=== PATIENT | male | born 1950 | race Caucasian/White ===

== ENCOUNTER → 2016-04-06 | Outpatient (CLI) | payer BC ==
[~2016-04-06] MED LIST: ALPR0.5T7 PO; ASPI-498 OR; ATOR1TAB PO; CARI250T8 PO; CLOP75TA28 PO; DIPH25TA43 PO; FENO130C6 OR; FERR27TA2 PO; FURO40TA4 PO; GABA1POW27 XX; HYDR-3678 OR; IOHEXOL 350 MG/ML 100ML IJ ONE; LIS5T PO; METO-169 PO; METO5TAB56 PO; MULT-578 OR; OMEG100078 PO; POTA10CA29 PO
[2016-04-06 09:45] VITALS: BP 120/63
[2016-04-06 10:30] VITALS: BP 133/76
== END | disposition home or self-care (01) ==
LOC: Rad HDHVI 09:09
PROVIDERS: ATTEND Internal Medicine Cardiovascular Disease
DX: E11.9 Type 2 diabetes mellitus without complications (principal); M79.604 Pain in right leg
CPT/HCPCS: 75635; G0463; Q9967; 96374

== ENCOUNTER → 2016-12-31 | Outpatient (CLI) | payer MEDICARE ==
[~2016-12-31] MED LIST changes: +CARI250T PO; -CARI250T8 PO; -IOHEXOL 350 MG/ML 100ML IJ ONE; +VANCOMYCIN 1GM/250ML 250 ML IV ONE; +cefTRIAXone 1GM/50ML D5W 50 ML IV ONE; +cefTRIAXone 1GM/50ML D5W 50 ML IV SCH
[2016-12-31 14:00] VITALS: BP 110/48
== END | disposition home or self-care (01) ==
LOC: CHF HDHVI 11:41
PROVIDERS: ATTEND Internal Medicine Cardiovascular Disease
DX: R89.9 Unspecified abnormal finding in specimens from other organs, systems and tissues (principal)
CPT/HCPCS: 87077; 87186; 87205; 96365; 96367; G0463; J0696; J3370

== ENCOUNTER → 2017-01-05 | Outpatient (CLI) | payer MEDICARE ==
[~2017-01-05] MED LIST changes: +ADENOSINE 110 MG in GIVE UN-DILUTED 0 ML IV ONE; +ADENOSINE 90 MG/30 ML INJ IV ONE; -VANCOMYCIN 1GM/250ML 250 ML IV ONE; -cefTRIAXone 1GM/50ML D5W 50 ML IV ONE; -cefTRIAXone 1GM/50ML D5W 50 ML IV SCH
== END | disposition home or self-care (01) ==
LOC: Rad HDHVI 13:59
PROVIDERS: ATTEND Internal Medicine Cardiovascular Disease
DX: I10 Essential (primary) hypertension (principal); E11.8 Type 2 diabetes mellitus with unspecified complications; J44.9 Chronic obstructive pulmonary disease, unspecified; E78.00 Pure hypercholesterolemia, unspecified; R63.8 Other symptoms and signs concerning food and fluid intake; I87.2 Venous insufficiency (chronic) (peripheral); L03.119 Cellulitis of unspecified part of limb; L97.909 Non-pressure chronic ulcer of unspecified part of unspecified lower leg with unspecified severity; Z95.1 Presence of aortocoronary bypass graft
CPT/HCPCS: 78452; 93005; 96374; 96375; A9500; J0153

== ENCOUNTER → 2017-01-11 | Outpatient (CLI) | payer MEDICARE ==
[~2017-01-11] MED LIST changes: -ADENOSINE 110 MG in GIVE UN-DILUTED 0 ML IV ONE; -ADENOSINE 90 MG/30 ML INJ IV ONE
== END | disposition home or self-care (01) ==
LOC: Rad HDHVI 13:49
PROVIDERS: ATTEND Internal Medicine Cardiovascular Disease
DX: I73.9 Peripheral vascular disease, unspecified (principal)
CPT/HCPCS: 93306

== ENCOUNTER → 2017-01-22 | Outpatient (CLI) | payer MEDICARE ==
[~2017-01-22] MED LIST changes: +ALPR0.254 PO; +AZEL137S7; +FAMO-12 PO; +INSLANTI SC; +LORA-622 PO; +METF-370 PO; +[UNRECOGNIZED DRUG - CODE] PO
[2017-01-22 09:30] VITALS: BP 121/50
[2017-01-22 12:20] LABS: Basophils # (auto) 0 uL; Basophils % (auto) 0.4 % (0.0-2.0); Eosinophils # (auto) 0.1 uL; Eosinophils % (auto) 2.2 % (0.0-7.0); Hematocrit 35.3 % (41.0-53.0); Hemoglobin 11.7 g/dL (13.5-17.5); Lymphocytes # (auto) 1.1 uL; Lymphocytes % (auto) 22.8 % (10.0-50.0); Mean Corpuscular Hemoglobin 31.4 pg (28.0-32.0); Mean Corpuscular Volume 94.9 fL (80.0-100.0); Mean Platelet Volume 8.1 fL (6.9-10.8); Monocytes # (auto) 0.5 uL; Monocytes % (auto) 10.3 % (0.0-12.0); Neutrophils # (auto) 3.2 uL; Neutrophils % (auto) 64.3 % (37.0-80.0); Nucleated Red Blood Cells % 0.2 %; Platelet Count (auto) 175 10^3/uL (140-450); Red Cell Distribution Width 14.5 % (11.8-14.3)
[2017-01-22 12:30] LABS: INR 1.04 (0.9-1.15); Partial Thromboplastin Time 45.1 sec (22.64-33.71); Prothrombin Time 11.3 sec (9.37-12.3)
[2017-01-22 12:31] LABS: BUN/Creatinine Ratio 28.3; Calcium 9.3 mg/dL (8.5-10.1); Potassium 4.4 mmol/L (3.5-5.1)
== END | disposition home or self-care (01) ==
LOC: CHF HDHVI 09:02
PROVIDERS: ATTEND Internal Medicine Cardiovascular Disease
DX: Z01.818 Encounter for other preprocedural examination (principal); I70.0 Atherosclerosis of aorta; D64.9 Anemia, unspecified; I10 Essential (primary) hypertension; R79.1 Abnormal coagulation profile
CPT/HCPCS: 36415; 71020; 80048; 85025; 85610; 85730; 93005; G0463

== ENCOUNTER → 2017-01-28 | Day surgery (SDC) | payer MEDICARE ==
[~2017-01-28] VITALS: Ht 177.8 cm; Wt 133.8 kg
[~2017-01-28] MED LIST changes: -ALPR0.5T7 PO; +ANGIOMAX 250 MG VIAL IV ONE; -DIPH25TA43 PO; -FENO130C6 OR; -FERR27TA2 PO; -GABA1POW27 XX; -HYDR-3678 OR; +IOHEXOL 350 MG/ML 100ML IJ ONE; +LIDOCAINE 2%HCL (LOCAL ANESTH.) INJ 20ML MDV ONE; +MIDAZOLAM HCL 1MG/1ML-2 ML VIAL ONE; -MULT-578 OR; +SODIUM CHL 0.9% 0 ML ONE; +[UNRECOGNIZED DRUG - CODE] PO; -[UNRECOGNIZED DRUG - CODE] PO; +fentaNYL CITRATE 100 MCG/2 ML VL ONE
== END | disposition home or self-care (01) ==
LOC: CATH 11:18
PROVIDERS: ATTEND Internal Medicine Cardiovascular Disease
DX: I25.10 Atherosclerotic heart disease of native coronary artery without angina pectoris (principal); Z95.1 Presence of aortocoronary bypass graft; E66.01 Morbid (severe) obesity due to excess calories; I10 Essential (primary) hypertension; E78.5 Hyperlipidemia, unspecified; F17.210 Nicotine dependence, cigarettes, uncomplicated; I50.9 Heart failure, unspecified; I63.9 Cerebral infarction, unspecified; Z83.3 Family history of diabetes mellitus
CPT/HCPCS: 93458; C1760; C1894; J1644; J2250; J3010; J7030; Q9967; 99152

== ENCOUNTER → 2017-04-05 | Outpatient (CLI) | payer MEDICARE ==
[~2017-04-05] MED LIST changes: -ANGIOMAX 250 MG VIAL IV ONE; -IOHEXOL 350 MG/ML 100ML IJ ONE; -LIDOCAINE 2%HCL (LOCAL ANESTH.) INJ 20ML MDV ONE; -MIDAZOLAM HCL 1MG/1ML-2 ML VIAL ONE; -SODIUM CHL 0.9% 0 ML ONE; +VORA1TAB PO; -[UNRECOGNIZED DRUG - CODE] PO; -fentaNYL CITRATE 100 MCG/2 ML VL ONE
[2017-04-05 09:10] VITALS: BP 145/57
[2017-04-05 09:35] VITALS: BP 138/56
== END | disposition home or self-care (01) ==
LOC: CHF HDHVI 09:19
PROVIDERS: ATTEND Internal Medicine Cardiovascular Disease
DX: E87.70 Fluid overload, unspecified (principal); I50.9 Heart failure, unspecified; R89.9 Unspecified abnormal finding in specimens from other organs, systems and tissues
CPT/HCPCS: 87205; G0463; 87077; 87186

== ENCOUNTER 2017-09-10 10:02 | Inpatient (IN) | payer MEDICARE ==
[~2017-09-10] VITALS: Ht 177.8 cm; Wt 121.3 kg
[2017-09-10] VITALS (26 sets, daily range): BP systolic 100–135; BP diastolic 32–82
[2017-09-10 11:17] LABS: Basophils # (auto) 0 uL; Eosinophils # (auto) 0 uL; Eosinophils % (auto) 0.4 % (0.0-7.0); Hematocrit 19.5 % (41.0-53.0); Lymphocytes # (auto) 1.2 uL; Neutrophils # (auto) 5.3 uL; Nucleated Red Blood Cells % 0.2 %; Platelet Count (auto) 174 10^3/uL (140-450)
[2017-09-10 11:20] LABS: Basophils % (auto) 0.2 % (0.0-2.0); Lymphocytes % (auto) 16.6 % (10.0-50.0); Mean Corpuscular Hemoglobin 33.3 pg (28.0-32.0); Mean Corpuscular Hgb Conc. 34.2 g/dL (32.0-36.0); Mean Corpuscular Volume 97.6 fL (80.0-100.0); Monocytes # (auto) 0.6 uL; Monocytes % (auto) 8.9 % (0.0-12.0); Neutrophils % (auto) 73.9 % (37.0-80.0); Red Cell Distribution Width 14.5 % (11.8-14.3); White Blood Cell 7.1 10^3/uL (4.4-10.8)
[2017-09-10 11:24] LABS: Hemoglobin 6.7 g/dL (13.5-17.5)
[2017-09-10] MEDS ORDERED: SODIUM CHLORIDE 0.9% 1,000 ML IV ONE ×2 (11:30→14:45)
[2017-09-10] MEDS ORDERED: PANTOPRAZOLE 40 MG/10 ML VIAL IV ONE ×3 (11:30→13:15)
[2017-09-10 11:39] LABS: INR 1.09 (0.9-1.15); Partial Thromboplastin Time 25.4 sec (23.78-33.04); Prothrombin Time 11.6 sec (9.27-12.13)
[2017-09-10 11:58] LABS: Albumin 3.5 g/dL (3.4-5.0); BUN/Creatinine Ratio 34.4; Bilirubin, Total 0.4 mg/dL (0.2-1.0); Calcium 8.2 mg/dL (8.5-10.1); Potassium 4.7 mmol/L (3.5-5.1); Total Protein 6.6 g/dL (6.4-8.2)
[2017-09-10 12:03] LABS: Magnesium 2.3 mg/dL (1.6-2.6)
[2017-09-10] MEDS ORDERED: LORazepam 0.5 MG TAB PO PRN (13:30)
[2017-09-10] MEDS ORDERED: DEXTROSE (50%) 50ML SYRG IV PRN (13:30)
[2017-09-10] MEDS ORDERED: HYDROcodone-ACET 5/325MG TAB PO PRN (13:30)
[2017-09-10] MEDS ORDERED: LACTULOSE 20Gm/30ML SOLN PO PRN (13:30)
[2017-09-10] MEDS ORDERED: ACETAMINOPHEN 500 MG TAB PO PRN (13:30)
[2017-09-10] MEDS ORDERED: PROMETHAZINE HCL 25 MG/ML 1ML IV PRN (13:30)
[2017-09-10] MEDS ORDERED: MORPHINE SULF INJ 2 MG/ML SYRINGE 1ML IV PRN ×2 (13:30)
[2017-09-10] MEDS ORDERED: NITROGLYCERIN 0.4 MG SL TAB SL PRN (13:30)
[2017-09-10] MEDS ORDERED: SODIUM CHLORIDE 0.9% 500 ML IV ONE (13:45)
[2017-09-10] MEDS: cefTRIAXone 1GM/10ml IVPUSH 10 ML IV SCH (14:11)
[2017-09-10] MEDS: CLINDAMYCIN 600MG IV 50 ML IV SCH ×2 (14:11→22:19)
[2017-09-10 17:22] LABS: Urine WBC None Seen /hpf (0 - 3)
[2017-09-10 17:52] LABS: Urine Bacteria NONE SEEN /hpf (None Seen); Urine Blood Negative /uL (Negative); Urine Hyaline Cast FEW /lpf (0 - 2); Urine Specific Gravity 1.017 (1.001-1.035)
[2017-09-10] MEDS: ACCU-CHEK COMFORT CURVE STRIP VI SCH (18:25)
[2017-09-10] MEDS: InsuLIN REG 1unit/0.01ml Soln (100units/ml) SC SCH (18:30)
[2017-09-10 21:31] LABS: Hematocrit 23.3 % (41.0-53.0); Hemoglobin 8.3 g/dL (13.5-17.5)
[2017-09-10] MEDS: PANTOPRAZOLE 40 MG/10 ML VIAL IV SCH (22:19)
[2017-09-11] VITALS (27 sets, daily range): BP systolic 87–136; BP diastolic 34–101
[2017-09-11] MEDS: CLINDAMYCIN 600MG IV 50 ML IV SCH ×3 (06:05→22:41)
[2017-09-11] MEDS: ACCU-CHEK COMFORT CURVE STRIP VI SCH ×4 (06:25→18:21)
[2017-09-11] MEDS: InsuLIN REG 1unit/0.01ml Soln (100units/ml) SC SCH ×4 (06:25→18:20)
[2017-09-11 06:52] LABS: Hemoglobin 9.7 g/dL (13.5-17.5)
[2017-09-11 07:12] LABS: Albumin 3.5 g/dL (3.4-5.0); BUN/Creatinine Ratio 30.1; Calcium 7.9 mg/dL (8.5-10.1); Potassium 4.4 mmol/L (3.5-5.1)
[2017-09-11 07:14] LABS: Cholesterol 119 mg/dL (< 200); HDL Cholesterol 22 mg/dL (40-59); LDL Cholesterol 57 mg/dL (< 100); Triglycerides 331 mg/dL (< 150)
[2017-09-11 07:15] LABS: Bilirubin, Total 0.8 mg/dL (0.2-1.0); Total Protein 6.8 g/dL (6.4-8.2)
[2017-09-11] MEDS: cefTRIAXone 1GM/10ml IVPUSH 10 ML IV SCH (10:09)
[2017-09-11] MEDS: PANTOPRAZOLE 40 MG/10 ML VIAL IV SCH ×2 (10:10→22:41)
[2017-09-11 15:52] LABS: Hematocrit 28.3 % (41.0-53.0); Hemoglobin 9.7 g/dL (13.5-17.5)
[2017-09-11] MEDS ORDERED: TIZA4CAP PO (20:21)
[2017-09-11] MEDS ORDERED: FENO160T8 PO (20:22)
[2017-09-11] MEDS ORDERED: ROSU40TA PO (20:23)
[2017-09-11] MEDS ORDERED: DIPH1TAB30 PO (20:31)
[2017-09-11] MEDS ORDERED: MULT-228 PO (20:31)
[2017-09-11] MEDS ORDERED: DULA1INJ SC (20:31)
[2017-09-11] MEDS ORDERED: DICL-176 PO (20:31)
[2017-09-11] MEDS ORDERED: INSLISPI SC (20:31)
[2017-09-12] VITALS (14 sets, daily range): BP systolic 87–152; BP diastolic 41–78
[2017-09-12] MEDS: ACCU-CHEK COMFORT CURVE STRIP VI SCH ×5 (06:00→21:33)
[2017-09-12] MEDS: CLINDAMYCIN 600MG IV 50 ML IV SCH (06:00)
[2017-09-12] MEDS ORDERED: DEXTROSE (50%) 50ML SYRG IV PRN ×2 (07:30→21:15)
[2017-09-12 08:49] LABS: Basophils # (auto) 0 uL; Basophils % (auto) 0.3 % (0.0-2.0); Eosinophils # (auto) 0.1 uL; Eosinophils % (auto) 1.9 % (0.0-7.0); Hematocrit 26.1 % (41.0-53.0); Hemoglobin 8.5 g/dL (13.5-17.5); Lymphocytes # (auto) 1.2 uL; Lymphocytes % (auto) 17.8 % (10.0-50.0); Mean Corpuscular Hemoglobin 31.1 pg (28.0-32.0); Mean Corpuscular Hgb Conc. 32.7 g/dL (32.0-36.0); Mean Corpuscular Volume 95.1 fL (80.0-100.0); Monocytes # (auto) 0.5 uL; Monocytes % (auto) 8.2 % (0.0-12.0); Neutrophils # (auto) 4.7 uL; Neutrophils % (auto) 71.8 % (37.0-80.0); Nucleated Red Blood Cells % 0.2 %; Platelet Count (auto) 151 10^3/uL (140-450); Red Blood Cells 2.74 10^6/uL (4.5-5.90); Red Cell Distribution Width 15.8 % (11.8-14.3); White Blood Cell 6.6 10^3/uL (4.4-10.8)
[2017-09-12] MEDS: PANTOPRAZOLE 40 MG/10 ML VIAL IV SCH ×2 (09:25→20:51)
[2017-09-12] MEDS ORDERED: INSULIN LANTUS (GLARGINE) 1 /0.01ml (100units/ml) SC SCH ×2 (09:45→10:00)
[2017-09-12] MEDS: InsuLIN REG 1unit/0.01ml Soln (100units/ml) SC SCH ×4 (11:30→21:32)
[2017-09-12 12:53] LABS: Albumin 3.5 g/dL (3.4-5.0); BUN/Creatinine Ratio 21.3; Bilirubin, Total 0.7 mg/dL (0.2-1.0); Calcium 8.4 mg/dL (8.5-10.1); Potassium 4.5 mmol/L (3.5-5.1); Total Protein 6.7 g/dL (6.4-8.2)
[2017-09-12] MEDS ORDERED: INSULIN LANTUS (GLARGINE) 1 /0.01ml (100units/ml) SC ONE (21:15)
[2017-09-12] MEDS ORDERED: InsuLIN REG 1unit/0.01ml Soln (100units/ml) SC SCH (22:00)
[2017-09-13] VITALS (19 sets, daily range): BP systolic 111–147; BP diastolic 39–65
[2017-09-13] MEDS: InsuLIN REG 1unit/0.01ml Soln (100units/ml) SC SCH ×5 (00:18→21:38)
[2017-09-13] MEDS: ACCU-CHEK COMFORT CURVE STRIP VI SCH ×4 (00:22→21:39)
[2017-09-13] MEDS: TEMAZEPAM 15 MG CAP PO PRN ×2 (00:23→23:30)
[2017-09-13 03:44] LABS: Basophils # (auto) 0 uL; Eosinophils # (auto) 0.1 uL; Eosinophils % (auto) 2.1 % (0.0-7.0); Hematocrit 24.3 % (41.0-53.0); Lymphocytes # (auto) 1.1 uL; Monocytes # (auto) 0.4 uL; Neutrophils # (auto) 4.4 uL; Nucleated Red Blood Cells % 0.2 %; Platelet Count (auto) 152 10^3/uL (140-450)
[2017-09-13 03:48] LABS: Basophils % (auto) 0.4 % (0.0-2.0); Hemoglobin 8.4 g/dL (13.5-17.5); Lymphocytes % (auto) 17.9 % (10.0-50.0); Mean Corpuscular Hemoglobin 32.2 pg (28.0-32.0); Mean Corpuscular Hgb Conc. 34.4 g/dL (32.0-36.0); Mean Corpuscular Volume 93.5 fL (80.0-100.0); Monocytes % (auto) 6.7 % (0.0-12.0); Neutrophils % (auto) 72.9 % (37.0-80.0); Red Cell Distribution Width 15.7 % (11.8-14.3)
[2017-09-13 04:01] LABS: Albumin 3.2 g/dL (3.4-5.0); BUN/Creatinine Ratio 16.1; Potassium 3.9 mmol/L (3.5-5.1)
[2017-09-13 04:04] LABS: Bilirubin, Total 0.7 mg/dL (0.2-1.0); Total Protein 6.5 g/dL (6.4-8.2)
[2017-09-13] MEDS ORDERED: DEXTROSE (50%) 50ML SYRG IV PRN (07:30)
[2017-09-13] MEDS: INSULIN LANTUS (GLARGINE) 1 /0.01ml (100units/ml) SC SCH (10:00)
[2017-09-13] MEDS ORDERED: INSULIN LANTUS (GLARGINE) 1 /0.01ml (100units/ml) SC SCH (10:00)
[2017-09-13] MEDS: SODIUM CHLORIDE 0.9% 1,000 ML IV SCH ×3 (10:15→23:35)
[2017-09-13] MEDS: PANTOPRAZOLE 40 MG/10 ML VIAL IV SCH ×2 (10:30→21:38)
[2017-09-13] MEDS: POTASSIUM CHL 20MEQ/100ML 100 ML IV SCH ×2 (11:15→19:15)
[2017-09-13] MEDS ORDERED: InsuLIN REG 1unit/0.01ml Soln (100units/ml) SC SCH (11:30)
[2017-09-13] MEDS ORDERED: LIDOCAINE 2%HCL (LOCAL ANESTH.) INJ 10ml MDV ONE (12:48)
[2017-09-13] MEDS ORDERED: IOHEXOL 350 MG/ML 100ML IJ ONE (12:48)
[2017-09-13] MEDS ORDERED: MIDAZOLAM HCL 1MG/1ML-2 ML VIAL ONE ×2 (13:05→13:30)
[2017-09-13] MEDS ORDERED: ANGIOMAX 250 MG VIAL IV ONE (13:05)
[2017-09-13] MEDS ORDERED: SODIUM CHL 0.9% 0 ML ONE (13:05)
[2017-09-13] MEDS ORDERED: fentaNYL CITRATE 100 MCG/2 ML VL ONE (13:05)
[2017-09-13] MEDS ORDERED: diphenhdrAMINE HCL 50 MG/1 ML VL ONE (13:30)
[2017-09-13] MEDS ORDERED: SODIUM CHLORIDE 0.9% 1,000 ML IV SCH (13:59)
[2017-09-13 18:42] LABS: Hematocrit 27.5 % (41.0-53.0); Hemoglobin 9.2 g/dL (13.5-17.5)
[2017-09-14] VITALS: BP 117/57
[2017-09-14 04:00] VITALS: BP 117/56
[2017-09-14] MEDS: SODIUM CHLORIDE 0.9% 1,000 ML IV SCH ×3 (05:52→22:30)
[2017-09-14] MEDS: InsuLIN REG 1unit/0.01ml Soln (100units/ml) SC SCH ×5 (06:39→22:36)
[2017-09-14] MEDS: ACCU-CHEK COMFORT CURVE STRIP VI SCH ×4 (06:39→22:21)
[2017-09-14 08:15] VITALS: BP 120/93
[2017-09-14] MEDS ORDERED: GOLYTELY 4L KIT PO ONE (09:45)
[2017-09-14 10:20] LABS: Basophils # (auto) 0 uL; Basophils % (auto) 0.3 % (0.0-2.0); Eosinophils # (auto) 0.1 uL; Eosinophils % (auto) 2.8 % (0.0-7.0); Hematocrit 28.8 % (41.0-53.0); Hemoglobin 9.6 g/dL (13.5-17.5); Lymphocytes # (auto) 0.7 uL; Lymphocytes % (auto) 15.3 % (10.0-50.0); Mean Corpuscular Hemoglobin 32.7 pg (28.0-32.0); Mean Corpuscular Hgb Conc. 33.3 g/dL (32.0-36.0); Mean Corpuscular Volume 98.1 fL (80.0-100.0); Monocytes # (auto) 0.4 uL; Monocytes % (auto) 7.5 % (0.0-12.0); Neutrophils # (auto) 3.5 uL; Neutrophils % (auto) 74.1 % (37.0-80.0); Nucleated Red Blood Cells % 0.4 %; Platelet Count (auto) 158 10^3/uL (140-450); Red Blood Cells 2.94 10^6/uL (4.5-5.90); Red Cell Distribution Width 16.8 % (11.8-14.3); White Blood Cell 4.8 10^3/uL (4.4-10.8)
[2017-09-14 10:37] LABS: Albumin 3.4 g/dL (3.4-5.0); BUN/Creatinine Ratio 8.1; Calcium 8.2 mg/dL (8.5-10.1); Total Protein 6.7 g/dL (6.4-8.2)
[2017-09-14] MEDS ORDERED: LIDOCAINE 1% HCL (LOCAL ANESTH.) INJ 20ML MDV ID ONE (11:00)
[2017-09-14] MEDS: INSULIN LANTUS (GLARGINE) 1 /0.01ml (100units/ml) SC SCH (11:03)
[2017-09-14 12:00] VITALS: BP 131/71
[2017-09-14] MEDS ORDERED: LIDOCAINE 1% (LOCAL ANESTH.) PF 5ml SDV ONE (13:36)
[2017-09-14] MEDS: PANTOPRAZOLE 40 MG/10 ML VIAL IV SCH ×2 (15:24→22:21)
[2017-09-14 16:45] VITALS: BP 157/69
[2017-09-14 21:00] VITALS: BP 125/43
[2017-09-15] VITALS: BP 111/42
[2017-09-15 06:30] VITALS: BP 116/56
[2017-09-15] MEDS: ACCU-CHEK COMFORT CURVE STRIP VI SCH ×4 (06:45→21:54)
[2017-09-15] MEDS: InsuLIN REG 1unit/0.01ml Soln (100units/ml) SC SCH ×4 (06:46→21:55)
[2017-09-15 08:00] VITALS: BP 117/48
[2017-09-15] MEDS: PANTOPRAZOLE 40 MG/10 ML VIAL IV SCH ×2 (09:40→21:55)
[2017-09-15] MEDS: INSULIN LANTUS (GLARGINE) 1 /0.01ml (100units/ml) SC SCH (09:41)
[2017-09-15] MEDS: SODIUM CHLORIDE 0.9% 1,000 ML IV SCH ×2 (11:00→23:30)
[2017-09-15] MEDS ORDERED: MIDAZOLAM HCL 1MG/1ML-2 ML VIAL ONE (11:46)
[2017-09-15] MEDS ORDERED: PROPOFOL 10 MG/ML 20 ML IV ONE (11:46)
[2017-09-15] MEDS ORDERED: fentaNYL CITRATE 5 ML ONE (11:46)
[2017-09-15] MEDS ORDERED: SUCCINYLCHOLINE CHLORIDE 20 MG/ML 10ML VIAL IV ONE (11:49)
[2017-09-15] MEDS ORDERED: LIDOCAINE 1% (LOCAL ANESTH.) PF 5ml SDV ONE (11:49)
[2017-09-15 12:00] VITALS: BP 114/51
[2017-09-15 16:00] VITALS: BP 112/48
[2017-09-15 22:00] VITALS: BP 110/47
[2017-09-16 05:25] VITALS: BP 106/52
[2017-09-16] MEDS: ACCU-CHEK COMFORT CURVE STRIP VI SCH ×2 (06:13→11:30)
[2017-09-16] MEDS: InsuLIN REG 1unit/0.01ml Soln (100units/ml) SC SCH ×2 (06:14→11:30)
[2017-09-16 06:42] LABS: Basophils # (auto) 0 uL; Basophils % (auto) 0.5 % (0.0-2.0); Eosinophils # (auto) 0.2 uL; Eosinophils % (auto) 3.8 % (0.0-7.0); Hematocrit 26.9 % (41.0-53.0); Hemoglobin 9.2 g/dL (13.5-17.5); Lymphocytes # (auto) 0.8 uL; Lymphocytes % (auto) 18.3 % (10.0-50.0); Mean Corpuscular Hemoglobin 32.6 pg (28.0-32.0); Mean Corpuscular Hgb Conc. 34.3 g/dL (32.0-36.0); Mean Corpuscular Volume 95.1 fL (80.0-100.0); Monocytes # (auto) 0.4 uL; Monocytes % (auto) 8.4 % (0.0-12.0); Neutrophils # (auto) 3.1 uL; Nucleated Red Blood Cells % 0.1 %; Platelet Count (auto) 152 10^3/uL (140-450); Red Blood Cells 2.83 10^6/uL (4.5-5.90); Red Cell Distribution Width 17.5 % (11.8-14.3); White Blood Cell 4.5 10^3/uL (4.4-10.8)
[2017-09-16 07:00] LABS: BUN/Creatinine Ratio 7.8; Potassium 3.7 mmol/L (3.5-5.1)
[2017-09-16 08:11] VITALS: BP 115/54
[2017-09-16] MEDS: INSULIN LANTUS (GLARGINE) 1 /0.01ml (100units/ml) SC SCH (10:00)
[2017-09-16] MEDS: PANTOPRAZOLE 40 MG/10 ML VIAL IV SCH (10:00)
[2017-09-16] MEDS: SODIUM CHLORIDE 0.9% 1,000 ML IV SCH (12:00)
[2017-09-16 13:17] VITALS: BP 121/80
[2017-09-16 14:43] VITALS: BP 121/80
[2017-09-16] MEDS ORDERED: EPOETIN ALFA 10,000 UNIT/1 ML VIAL SC ONE (15:45)
[2017-09-16] MEDS ORDERED: FERROUS SULFATE 325 MG TAB PO SCH (18:00)
== END 2017-09-16 15:20 | disposition home or self-care (01) | DRG 377 ==
LOC: ER 10:02 → TELE 10:03 → ICU WEST 15:15 → TELE-EAST 09-15 17:21
PROVIDERS: ADMIT Internal Medicine; ATTEND Family Medicine
PROC: 30233N1 Transfusion of Nonautologous Red Blood Cells into Peripheral Vein, Percutaneous Approach (ICD-10-PCS; principal; 2017-09-10)
PROC: 4A023N7 Measurement of Cardiac Sampling and Pressure, Left Heart, Percutaneous Approach (ICD-10-PCS; 2017-09-13)
PROC: B2111ZZ Fluoroscopy of Multiple Coronary Arteries using Low Osmolar Contrast (ICD-10-PCS; 2017-09-13)
PROC: B2181ZZ Fluoroscopy of Left Internal Mammary Bypass Graft using Low Osmolar Contrast (ICD-10-PCS; 2017-09-13)
PROC: B21F1ZZ Fluoroscopy of Other Bypass Graft using Low Osmolar Contrast (ICD-10-PCS; 2017-09-13)
PROC: B3121ZZ Fluoroscopy of Left Subclavian Artery using Low Osmolar Contrast (ICD-10-PCS; 2017-09-13)
PROC: 0DJD8ZZ Inspection of Lower Intestinal Tract, Via Natural or Artificial Opening Endoscopic (ICD-10-PCS; 2017-09-15)
DX: K92.2 Gastrointestinal hemorrhage, unspecified (principal); N17.0 Acute kidney failure with tubular necrosis; I21.4 Non-ST elevation (NSTEMI) myocardial infarction; I50.42 Chronic combined systolic (congestive) and diastolic (congestive) heart failure; D62 Acute posthemorrhagic anemia; I13.0 Hypertensive heart and chronic kidney disease with heart failure and stage 1 through stage 4 chronic kidney disease, or unspecified chronic kidney disease; E87.1 Hypo-osmolality and hyponatremia; I25.10 Atherosclerotic heart disease of native coronary artery without angina pectoris; E66.01 Morbid (severe) obesity due to excess calories; E11.621 Type 2 diabetes mellitus with foot ulcer; N18.3 Chronic kidney disease, stage 3 (moderate); E11.21 Type 2 diabetes mellitus with diabetic nephropathy; D50.0 Iron deficiency anemia secondary to blood loss (chronic); E11.22 Type 2 diabetes mellitus with diabetic chronic kidney disease; E11.51 Type 2 diabetes mellitus with diabetic peripheral angiopathy without gangrene; E11.65 Type 2 diabetes mellitus with hyperglycemia; E78.5 Hyperlipidemia, unspecified; I48.91 Unspecified atrial fibrillation; K64.8 Other hemorrhoids; L97.519 Non-pressure chronic ulcer of other part of right foot with unspecified severity; Z79.01 Long term (current) use of anticoagulants; Z82.3 Family history of stroke; Z95.1 Presence of aortocoronary bypass graft; Z95.5 Presence of coronary angioplasty implant and graft; Z82.49 Family history of ischemic heart disease and other diseases of the circulatory system; Z79.899 Other long term (current) drug therapy; Z68.38 Body mass index [BMI] 38.0-38.9, adult
CPT/HCPCS: 36415; 36430; 45378; 71045; 73630; 74176; 75710; 76775; 80048; 80053; 80061; 81001; 82150; 82378; 82550; 82570; 82962; 83036; 83690; 83735; 83880; 84132; 84156; 84300; 84443; 84484; 85014; 85018; 85025; 85045; 85379; 85610; 85652; 85730; 86141; 86850; 86900; 86901; 86920; 87081; 93005; 93459; 93926; 94761; 96361; 96365; 96375; 99152; A6257; C9113; J0330; J0696; J1815; J2001; J2250; J2704; J3480; J3490

== ENCOUNTER → 2018-01-11 | Outpatient (CLI) | payer MEDICARE ==
[~2018-01-11] MED LIST changes: -ATOR1TAB PO; -AZEL137S7; -CARI250T PO; +DIPH1TAB30 PO; +DULA1INJ SC; +FENO160T8 PO; +INSLISPI SC; -LORA-622 PO; -METO5TAB56 PO; +MULT-228 PO; +ROSU40TA PO; +TIZA4CAP PO
== END | disposition home or self-care (01) ==
LOC: Rad HDHVI 12:50
PROVIDERS: ATTEND Internal Medicine Cardiovascular Disease
DX: I70.291 Other atherosclerosis of native arteries of extremities, right leg (principal); M79.606 Pain in leg, unspecified
CPT/HCPCS: 93926

== ENCOUNTER → 2018-01-25 | Outpatient (CLI) | payer MEDICARE ==
[2018-01-25 11:02] VITALS: BP 115/38
[2018-01-25 12:10] VITALS: BP 120/52
== END | disposition home or self-care (01) ==
LOC: Rad HDHVI 11:01
PROVIDERS: ATTEND Internal Medicine Cardiovascular Disease
DX: L97.519 Non-pressure chronic ulcer of other part of right foot with unspecified severity (principal)
CPT/HCPCS: 73630; G0463

== ENCOUNTER → 2018-01-31 | Outpatient (CLI) | payer MEDICARE ==
[~2018-01-31] MED LIST changes: +AGG25C PO; +ALPR1TAB7 PO; +OMEG120015 PO
[2018-01-31 09:30] VITALS: BP 113/42
[2018-01-31 10:35] VITALS: BP 120/47
[2018-01-31 12:17] LABS: Basophils # (auto) 0 uL; Basophils % (auto) 0.4 % (0.0-2.0); Eosinophils # (auto) 0.1 uL; Eosinophils % (auto) 2.2 % (0.0-7.0); Hematocrit 36.9 % (41.0-53.0); Hemoglobin 12.1 g/dL (13.5-17.5); Lymphocytes # (auto) 0.9 uL; Lymphocytes % (auto) 20.3 % (10.0-50.0); Mean Corpuscular Hemoglobin 30.6 pg (28.0-32.0); Mean Corpuscular Hgb Conc. 32.8 g/dL (32.0-36.0); Mean Corpuscular Volume 93.5 fL (80.0-100.0); Monocytes # (auto) 0.5 uL; Monocytes % (auto) 10.7 % (0.0-12.0); Neutrophils # (auto) 2.9 uL; Neutrophils % (auto) 66.4 % (37.0-80.0); Nucleated Red Blood Cells % 0.1 %; Platelet Count (auto) 230 10^3/uL (140-450); Red Blood Cells 3.94 10^6/uL (4.5-5.90); Red Cell Distribution Width 14.4 % (11.8-14.3); White Blood Cell 4.4 10^3/uL (4.4-10.8)
[2018-01-31 12:25] LABS: Potassium 4.6 mmol/L (3.5-5.1)
[2018-01-31 12:27] LABS: BUN/Creatinine Ratio 21.1
[2018-01-31 12:38] LABS: INR 1.09 (0.9-1.15); Partial Thromboplastin Time 49.7 sec (23.78-33.04); Prothrombin Time 11.6 sec (9.27-12.13)
== END | disposition home or self-care (01) ==
LOC: Rad HDHVI 09:17
PROVIDERS: ATTEND Internal Medicine Cardiovascular Disease
DX: Z01.818 Encounter for other preprocedural examination (principal); I70.0 Atherosclerosis of aorta; I11.0 Hypertensive heart disease with heart failure; I50.9 Heart failure, unspecified; R79.1 Abnormal coagulation profile; D64.9 Anemia, unspecified
CPT/HCPCS: 36415; 71046; 80048; 85025; 85610; 85730; 93005; G0463

== ENCOUNTER 2018-03-17 10:13 | Inpatient (IN) | payer MEDICARE | END 2018-03-25 20:00 | LOC: ICU CENTRL 03-20 10:01 → TELE-CENTR 03-23 14:09 → ER 10:13 → DOU IN ICU 03-20 19:31 → TELE 13:42 → TELE-CENTR 19:55 | PROC: 30233N1 Transfusion of Nonautologous Red Blood Cells into Peripheral Vein, Percutaneous Approach (ICD-10-PCS; principal; 2018-03-21 11:46) | PROC: 0WJP8ZZ Inspection of Gastrointestinal Tract, Via Natural or Artificial Opening Endoscopic Approach (ICD-10-PCS; 2018-03-21 11:46) | DX: K92.2 Gastrointestinal hemorrhage, unspecified (principal); J18.9 Pneumonia, unspecified organism; N17.0 Acute kidney failure with tubular necrosis; E44.0 Moderate protein-calorie malnutrition; M86.9 Osteomyelitis, unspecified; I13.0 Hypertensive heart and chronic kidney disease with heart failure and stage 1 through stage 4 chronic kidney disease, or unspecified chronic kidney disease; I47.2 Ventricular tachycardia; D64.9 Anemia, unspecified; R53.1 Weakness; I73.9 Peripheral vascular disease, unspecified; I25.10 Atherosclerotic heart disease of native coronary artery without angina pectoris; E11.69 Type 2 diabetes mellitus with other specified complication; I50.9 Heart failure, unspecified; I11.0 Hypertensive heart disease with heart failure; E11.22 Type 2 diabetes mellitus with diabetic chronic kidney disease; N18.9 Chronic kidney disease, unspecified; E11.51 Type 2 diabetes mellitus with diabetic peripheral angiopathy without gangrene; E66.9 Obesity, unspecified; I25.5 Ischemic cardiomyopathy; K29.70 Gastritis, unspecified, without bleeding; B96.89 Other specified bacterial agents as the cause of diseases classified elsewhere; E11.42 Type 2 diabetes mellitus with diabetic polyneuropathy; E11.621 Type 2 diabetes mellitus with foot ulcer; L97.519 Non-pressure chronic ulcer of other part of right foot with unspecified severity; Z95.1 Presence of aortocoronary bypass graft ==

== ENCOUNTER → 2018-04-11 | Outpatient (CLI) | payer MEDICARE ==
[~2018-04-11] MED LIST changes: +ACET-1156 PO; -ALPR0.254 PO; +AMINLIQ64 PO; +AMIO200T33 PO; +APIX5TAB4 PO; -ASPI-498 OR; +BIS10RS PR; +FERR-7 PO; +FLUC200T35 PO; +HYDR-4683 PO; +LINE1TAB6 PO; +MAGN400S25 PO; +MAGN84TA4 PO; +MAGNESIUM SULFATE 1GM/100ML 100 ML IV SCH; +MAGNESIUM SULFATE 1GM/100ML 200 ML IV ONE; +METH-532 PO; +MULTTAB61 PO; +MVI in SODIUM CHLORIDE 0.9% 1,010 ML ONE; +MVI in SODIUM CHLORIDE 0.9% 500 ML IVB ONE; -OMEG100078 PO; +ONDA4TAB5 PO; +PANT1INJ3 PO; +SACC1CAP3 PO; -VORA1TAB PO
--- NOTE | 2018-04-11 10:00 | NUR ---
FOUND PATIENT FALLING BACK IN WHEELCHAIR WITH LEGS OUT BOTTOM, PALE, DIAPHORETIC WITH EYES OPEN, NOT TRACKING, INITIALLY NON-VERBAL. GRUNTING AND INEFFECTIVE BREATHS NOTED INITIALLY. 2 WOMEN IN ATTENDANCE SCREAMING FOR HELP. MULTIPLE CAREGIVERS RESPONDED WITH PT LIFTED BACK TO SECURE POSITION IN CHAIR BY 4 PERSONS. PT TRYING TO SPEAK, VERY SOFTLY. FAMILY CONTINUES TO SCREAM FOR 911. PT STATES TO FRANCISCO IN SOFT VOICE "I DONT WANT TO GO TO HOSPITAL" PT RECOGNIZES FRANCISCO RN AND PT ALSO KNOWS HIS STATED NAME. APPEARS TO BE COMING OUT OF NON RESPONSIVE EPISODE AND TALKING MORE TO FRANCISCO. PALENESS APPEARS TO BE LESSENING AND DIAPHORESIS APPEARS LESSENED.
--- NOTE | 2018-04-11 10:10 | NUR ---
[facility]EMS JUST ARRIVED AT SCENE, AN APPARENT CALL TO 911 BY FAMILY MEMBER AND STAFF WITHOUT KNOWLEDGE OF THIS RN. PT. IS AOX3, SLIGHTLY DIAPHORETIC. PT. WAS SCHEDULED FOR POST HOSP. APPT. IN WAITING ROOM. SEE ABOVE NOTE BY TIFFANIE PRATER. PT. DOES NOT REMEMBER EVENTS IN WAITING ROOM,AND PT. HAD HIS EYES OPEN WHEN I ARRIVED TO WAITING ROOM. BRIEF REPORT GIVEN TO EMS BY THIS RN WITH SIGNIFICANT AND EXTENSIVE HX. GIVEN TO MEDIC ON FAMILY DYNAMICS. PT. WISHES TO REMAIN IN WC. O2 WAS APPLIED VIA NC UPON ARRIVAL AT 4L. B/P 94/53, HR82, RR18 AND NON LABORED. RBS DONE BY EMS IS 236. DR. GONZALEZ CALLED TO BEDSIDE.
--- NOTE | 2018-04-11 10:15 | NUR ---
DR. GONZALEZ AT CHAIRSIDE. PT. REMAINS IN WITH NO C/O. PT. HAS EXISTING PICC RUE, STAT LABS DRAWN AND SENT UPON ARRIVAL. NEW ORDERS RECEIVED AND CARRIED OUT.PT. TO SIGN AMA FOR TRANSPORT TO [facility] LEAVING SHORTLY. FAMILY AT CHAIRSIDE.
--- NOTE | 2018-04-11 10:30 | NUR ---
PT. MOVED TO CHAIR FOR EKG AND COMFORT. EKG SHOWS VENT PACED RHYTHM WITH 100% CAPTURE. RESULTS TO DR. GONZALEZ.
--- NOTE | 2018-04-11 10:40 | NUR ---
MEDS: .9NS WITH MVI STARTED AT 125CC/HR PER ORDER. PT. HAS BILAT.DRESSING TO BOTH FEET THAT ARE CHANGED DAILY AT [facility]. PT. IS REQUESTING PODIATRY CONSULT.
[2018-04-11 11:03] LABS: Basophils # (auto) 0 uL; Basophils % (auto) 0.5 % (0.0-2.0); Eosinophils # (auto) 0.1 uL; Eosinophils % (auto) 1.5 % (0.0-7.0); Hematocrit 28.5 % (41.0-53.0); Hemoglobin 9.5 g/dL (13.5-17.5); Lymphocytes # (auto) 1.4 uL; Lymphocytes % (auto) 21.1 % (10.0-50.0); Mean Corpuscular Hgb Conc. 33.3 g/dL (32.0-36.0); Mean Corpuscular Volume 92.9 fL (80.0-100.0); Monocytes # (auto) 0.5 uL; Monocytes % (auto) 8.1 % (0.0-12.0); Neutrophils # (auto) 4.7 uL; Neutrophils % (auto) 68.8 % (37.0-80.0); Nucleated Red Blood Cells % 0.7 %; Platelet Count (auto) 228 10^3/uL (140-450); Red Blood Cells 3.07 10^6/uL (4.5-5.90); White Blood Cell 6.8 10^3/uL (4.4-10.8)
[2018-04-11 11:15] LABS: Albumin 2.6 g/dL (3.4-5.0); Calcium 7.9 mg/dL (8.5-10.1); Magnesium 1.7 mg/dL (1.6-2.6); Potassium 4.2 mmol/L (3.5-5.1)
--- NOTE | 2018-04-11 11:30 | NUR ---
PT'S IS ASKING HOW LONG PT. WILL HAVE TO BE HERE IN CLINIC. PENDING STAT LABS. B/P 90/44, 72, 18 O2 REMOVED BY PT, WITH RA SATS 96%. PLAN OF CARE DISCUSSED WITH PT. AND WITH ASSURANCE THAT PT. WILL NOT BE DISCHARGED UNTIL LAB RESULTS PER DR. GONZALEZ. PT. STATES HE HAS NO PROBLEMS.
[2018-04-11 11:33] LABS: BUN/Creatinine Ratio 9.7
[2018-04-11 11:34] LABS: Bilirubin, Total 0.8 mg/dL (0.2-1.0); Total Protein 6.7 g/dL (6.4-8.2)
--- NOTE | 2018-04-11 12:47 | NUR ---
MEDS: MAG SULFATE 1 GM IV STARTED PER MD ORDER AFTER LABS REVIEWED WITH DR. GONZALEZ. PT. SITTING UP EATING LUNCH THAT WAS BROUGHT IN BY , AND ATE 100% THAT WAS OFFERED TO HIM. 104/49, 74, 18. PACED RHYTHM.
--- NOTE | 2018-04-11 14:00 | NUR ---
MEDS: SECOND GM OF MGSO4 IV STARTED VIA PICC. EXISTING GASTON FROM ECF WITH YELLOW URINE AND APPROX. 400CC IN BAG
--- NOTE | 2018-04-11 14:56 | NUR ---
MEDS COMPLETE PICC LINES FLUSHED PER PROTOCOL WITH 150CC OF HEPARIN EACH.SITE BENIGN. PT. TOLERATED MEDS WELL. GIVEN COPY OF ALL LABS. NEW ORDERS AND PROGRESS NOTES FILLED OUT BY DR. GONZALEZ AND GIVEN TO FAMILY TO TAKE TO ECF. PT. TO MAKE APPT FOR LOWER EXT. DOPPLER PER MD ORDER OUT PATIENT. PT. WAS GIVEN ONE FOR 11:50 TOMORROW BUT DECLINED AND WILL RESCHEDULE.
[2018-04-11 15:15] VITALS: BP 94/48
--- NOTE | 2018-04-11 15:15 | NUR ---
Discharge Instructions See e-MAR for any mediations given with this visit. Patient education given on disease process. Patient verbalized understanding. Previous labs reviewed. Patient discharged in stable condition with after care instructions and follow up appointment.PT DISCHARGED WITH ECF TEAM VIA WC.
== END | disposition home or self-care (01) ==
LOC: EDBD → CHF HDHVI 10:17
PROVIDERS: ATTEND Internal Medicine Cardiovascular Disease
DX: I25.119 Atherosclerotic heart disease of native coronary artery with unspecified angina pectoris (principal); I13.0 Hypertensive heart and chronic kidney disease with heart failure and stage 1 through stage 4 chronic kidney disease, or unspecified chronic kidney disease; E11.22 Type 2 diabetes mellitus with diabetic chronic kidney disease; N18.3 Chronic kidney disease, stage 3 (moderate); I50.23 Acute on chronic systolic (congestive) heart failure; I50.32 Chronic diastolic (congestive) heart failure; D64.9 Anemia, unspecified; E83.42 Hypomagnesemia; R55 Syncope and collapse; E11.51 Type 2 diabetes mellitus with diabetic peripheral angiopathy without gangrene; M86.9 Osteomyelitis, unspecified; I49.5 Sick sinus syndrome; I25.2 Old myocardial infarction; I48.91 Unspecified atrial fibrillation; I70.0 Atherosclerosis of aorta; I42.9 Cardiomyopathy, unspecified; J44.9 Chronic obstructive pulmonary disease, unspecified; E11.42 Type 2 diabetes mellitus with diabetic polyneuropathy; E66.01 Morbid (severe) obesity due to excess calories; E11.21 Type 2 diabetes mellitus with diabetic nephropathy; E78.5 Hyperlipidemia, unspecified; Z79.82 Long term (current) use of aspirin; Z95.1 Presence of aortocoronary bypass graft; Z79.84 Long term (current) use of oral hypoglycemic drugs; Z87.891 Personal history of nicotine dependence; Z95.810 Presence of automatic (implantable) cardiac defibrillator; Z86.718 Personal history of other venous thrombosis and embolism; Z79.01 Long term (current) use of anticoagulants; Z79.899 Other long term (current) drug therapy
CPT/HCPCS: 36415; 80053; 83735; 83880; 84484; 85025; 93005; 96365; 96366; 96368; G0463; J1642; J3411; J3475

== ENCOUNTER → 2018-04-19 | Outpatient (CLI) | payer MEDICARE ==
[~2018-04-19] MED LIST changes: -MAGNESIUM SULFATE 1GM/100ML 100 ML IV SCH; -MAGNESIUM SULFATE 1GM/100ML 200 ML IV ONE; -MVI in SODIUM CHLORIDE 0.9% 1,010 ML ONE; -MVI in SODIUM CHLORIDE 0.9% 500 ML IVB ONE
[2018-04-19 08:15] VITALS: BP 96/47
[2018-04-19 09:17] VITALS: BP 95/45
--- NOTE | 2018-04-19 09:17 | NUR ---
IN FOR ULTRASOUND OF BILATERAL LEGS. PT FROM ULTRASOUND TO CHF WITH PROFUSE VOMITING AND "NOT FEELING WELL". 2 FAMILY MEMBERS IN ATTENDANCE. PT IS WHEELCHAIR BOUND WITH BILATERAL FEET IN DRESSINGS. UNABLE TO STAND. EMESISED 400 ML OF MORNING BREAKFAST. DENIED FURTHER NAUSEA AFTER EMESIS. PT STATES "THERE IS NO WAY I CAN GET ON THAT TABLE IN ULTRASOUND". 3 PERSON LIFT ONTO RECLINER CHAIR IN CHF CLINIC. ULTRASOUND DONE AT CHAIRSIDE IN CHF CLINIC. PT TOLERATED WELL. REPEAT VS WNL. 3 PERSON LIFT BACK INTO CHAIR AND DISCHARGED TO CARE OF FAMILY MEMBERS TO RETURN TO FACILITY FOR ONGOING CARE. IN NO DISTRESS OR DISCOMFORT AT TIME OF DISCHARGE. Discharge Instructions Patient discharged in stable condition.
== END | disposition home or self-care (01) ==
LOC: Rad HDHVI 08:10
PROVIDERS: ATTEND Internal Medicine Cardiovascular Disease
DX: I73.9 Peripheral vascular disease, unspecified (principal); R55 Syncope and collapse; I95.9 Hypotension, unspecified
CPT/HCPCS: G0463

== ENCOUNTER → 2018-05-10 | Outpatient (CLI) | payer MEDICARE | END | disposition home or self-care (01) | LOC: EDBD → XY 10:38 | PROVIDERS: ATTEND Podiatrist Foot & Ankle Surgery | DX: I70.203 Unspecified atherosclerosis of native arteries of extremities, bilateral legs (principal); I77.1 Stricture of artery | CPT/HCPCS: 93925 ==

== ENCOUNTER → 2018-09-27 | Outpatient (CLI) | payer MEDICARE ==
[~2018-09-27] MED LIST changes: -HYDR-4683 PO; +HYDR-4833 PO; +ONDA-144 PO; -ONDA4TAB5 PO; +TEMA30CA5 PO
== END | disposition home or self-care (01) ==
LOC: Rad HDHVI 10:03
PROVIDERS: ATTEND Internal Medicine Cardiovascular Disease
DX: I08.0 Rheumatic disorders of both mitral and aortic valves (principal); R55 Syncope and collapse; I11.0 Hypertensive heart disease with heart failure; I50.9 Heart failure, unspecified; Z98.61 Coronary angioplasty status
CPT/HCPCS: 93306

== ENCOUNTER → 2019-05-31 | Outpatient (CLI) | payer MEDICARE ==
[~2019-05-31] MED LIST changes: -ACET-1156 PO; -AGG25C PO; -AMINLIQ64 PO; -BIS10RS PR; -DULA1INJ SC; -FLUC200T35 PO; -FURO40TA4 PO; -LINE1TAB6 PO; -MAGN400S25 PO; -MAGN84TA4 PO; -METO-169 PO; -MULTTAB61 PO; -ONDA-144 PO; -POTA10CA29 PO; -ROSU40TA PO; -SACC1CAP3 PO
[2019-05-31 11:24] LABS: BUN/Creatinine Ratio 22.6; Calcium 8.5 mg/dL (8.5-10.1); Magnesium 2.2 mg/dL (1.6-2.6); Potassium 4.6 mmol/L (3.5-5.1)
== END | disposition home or self-care (01) ==
LOC: LAB 10:02
PROVIDERS: ATTEND Internal Medicine Cardiovascular Disease
DX: R00.2 Palpitations (principal); R42 Dizziness and giddiness; K21.9 Gastro-esophageal reflux disease without esophagitis; I10 Essential (primary) hypertension; E11.9 Type 2 diabetes mellitus without complications; E78.5 Hyperlipidemia, unspecified; I11.0 Hypertensive heart disease with heart failure; I50.9 Heart failure, unspecified; E11.51 Type 2 diabetes mellitus with diabetic peripheral angiopathy without gangrene
CPT/HCPCS: 36415; 80048; 83735

== ENCOUNTER → 2019-06-07 | Outpatient (CLI) | payer MEDICARE ==
[~2019-06-07] VITALS: Ht 177.8 cm; Wt 113.4 kg
[~2019-06-07] MED LIST changes: +ADENOSINE 90 MG/30 ML INJ IV ONE; +ADENOSINE 95 MG in GIVE UN-DILUTED 0 ML IV ONE
== END | disposition home or self-care (01) ==
LOC: Rad HDHVI 13:43
PROVIDERS: ATTEND Internal Medicine Cardiovascular Disease
DX: I25.2 Old myocardial infarction (principal); I10 Essential (primary) hypertension; R07.89 Other chest pain; E78.00 Pure hypercholesterolemia, unspecified; E11.9 Type 2 diabetes mellitus without complications; Z95.0 Presence of cardiac pacemaker; Z95.1 Presence of aortocoronary bypass graft; Z82.49 Family history of ischemic heart disease and other diseases of the circulatory system
CPT/HCPCS: 78452; 93005; 96374; 96375; A9500; J0153

== ENCOUNTER → 2019-06-13 | Outpatient (CLI) | payer MEDICARE ==
[~2019-06-13] MED LIST changes: -ADENOSINE 90 MG/30 ML INJ IV ONE; -ADENOSINE 95 MG in GIVE UN-DILUTED 0 ML IV ONE
== END | disposition home or self-care (01) ==
LOC: Rad HDHVI 13:54
PROVIDERS: ATTEND Internal Medicine Cardiovascular Disease
DX: I08.1 Rheumatic disorders of both mitral and tricuspid valves (principal); I11.0 Hypertensive heart disease with heart failure; I50.23 Acute on chronic systolic (congestive) heart failure; I25.5 Ischemic cardiomyopathy
CPT/HCPCS: 93306

== ENCOUNTER 2019-12-21 18:06 | Inpatient (IN) | payer MEDICARE ==
[~2019-12-21] VITALS: Ht 177.8 cm; Wt 109.5 kg
[2019-12-21 20:49] LABS: Basophils # (auto) 0 10 ^3/uL (0-0.2); Basophils % (auto) 0.5 % (0.0-2.0); Eosinophils # (auto) 0.1 10 ^3/uL (0-0.8); Eosinophils % (auto) 1.6 % (0.0-7.0); Hematocrit 33.4 % (41.0-53.0); Hemoglobin 11.2 g/dL (13.5-17.5); Lymphocytes # (auto) 0.5 10 ^3/uL (0.4-5.4); Lymphocytes % (auto) 8.7 % (10.0-50.0); Mean Corpuscular Hemoglobin 31.2 pg (28.0-32.0); Mean Corpuscular Hgb Conc. 33.6 g/dL (32.0-36.0); Monocytes # (auto) 0.4 10 ^3/uL (0-1.3); Monocytes % (auto) 7.3 % (0.0-12.0); Neutrophils # (auto) 4.4 10 ^3/uL (1.6-8.6); Neutrophils % (auto) 81.9 % (37.0-80.0); Platelet Count (auto) 209 10^3/uL (140-450); Red Blood Cells 3.59 10^6/uL (4.5-5.90); Red Cell Distribution Width 15.6 % (11.8-14.3); White Blood Cell 5.4 10^3/uL (4.4-10.8)
[2019-12-21 21:01] LABS: Albumin 3.6 g/dL (3.4-5.0); Potassium 5.4 mmol/L (3.5-5.1)
[2019-12-21 21:03] LABS: BUN/Creatinine Ratio 15.8
[2019-12-21 21:09] LABS: Bilirubin, Total 0.8 mg/dL (0.2-1.0); Total Protein 7.9 g/dL (6.4-8.2)
[2019-12-21] MEDS ORDERED: cefTRIAXone 1GM/50ML D5W 50 ML IV ONE (22:15)
[2019-12-21] MEDS ORDERED: CLINDAMYCIN 900MG IV 50 ML IV ONE (23:00)
[2019-12-21 23:55] LABS: Urine Bacteria FEW /hpf (None Seen); Urine Blood Negative /uL (Negative); Urine Specific Gravity 1.007 (1.001-1.035); Urine WBC 1 /hpf (0 - 3)
[2019-12-22] MEDS ORDERED: NITROGLYCERIN 0.4 MG SL TAB SL PRN (03:15)
[2019-12-22] MEDS ORDERED: MORPHINE SULFATE 4 MG/ML SYR/VIAL IV ONE (03:15)
[2019-12-22] MEDS ORDERED: DOCUSATE SOD 100 MG CAP PO PRN (03:15)
[2019-12-22] MEDS ORDERED: ACETAMINOPHEN 325 MG TAB PO PRN (03:15)
[2019-12-22] MEDS ORDERED: ONDANSETRON HCL 4 MG/2 ML VIAL IV PRN (03:15)
[2019-12-22] MEDS ORDERED: MORPHINE SULF INJ 2 MG/ML SYRINGE 1ML IV PRN (03:15)
[2019-12-22] MEDS ORDERED: ONDANSETRON HCL 4 MG/2 ML VIAL IV ONE (03:15)
[2019-12-22] MEDS ORDERED: HYDROcodone-ACET 10/325MG TAB PO ONE (03:30)
[2019-12-22] MEDS ORDERED: DEXTROSE (50%) 50ML SYRG IV PRN (03:30)
[2019-12-22 04:00] LABS: Basophils # (auto) 0 10 ^3/uL (0-0.2); Basophils % (auto) 0.6 % (0.0-2.0); Eosinophils # (auto) 0.1 10 ^3/uL (0-0.8); Eosinophils % (auto) 1.4 % (0.0-7.0); Hematocrit 32.3 % (41.0-53.0); Hemoglobin 10.9 g/dL (13.5-17.5); Lymphocytes # (auto) 0.6 10 ^3/uL (0.4-5.4); Lymphocytes % (auto) 9.7 % (10.0-50.0); Mean Corpuscular Hemoglobin 31.4 pg (28.0-32.0); Mean Corpuscular Hgb Conc. 33.6 g/dL (32.0-36.0); Mean Corpuscular Volume 93.3 fL (80.0-100.0); Monocytes # (auto) 0.5 10 ^3/uL (0-1.3); Monocytes % (auto) 7.9 % (0.0-12.0); Neutrophils # (auto) 5.4 10 ^3/uL (1.6-8.6); Neutrophils % (auto) 80.4 % (37.0-80.0); Platelet Count (auto) 213 10^3/uL (140-450); Red Blood Cells 3.47 10^6/uL (4.5-5.90); Red Cell Distribution Width 15.2 % (11.8-14.3); White Blood Cell 6.7 10^3/uL (4.4-10.8)
[2019-12-22 04:14] LABS: Albumin 3.4 g/dL (3.4-5.0)
[2019-12-22 04:19] LABS: BUN/Creatinine Ratio 16.9; Bilirubin, Total 0.7 mg/dL (0.2-1.0); Total Protein 7.6 g/dL (6.4-8.2)
[2019-12-22 04:53] LABS: Cholesterol 198 mg/dL (< 200); HDL Cholesterol 23 mg/dL (40-59); LDL Cholesterol 152 mg/dL (< 100); Triglycerides 225 mg/dL (< 150)
[2019-12-22] MEDS ORDERED: HEPARIN SODIUM (PORCINE) 5000 UNITS/ML 1ML VIAL SC SCH (06:00)
[2019-12-22] MEDS: CLINDAMYCIN 300MG IV 50 ML IV SCH ×3 (06:27→21:50)
[2019-12-22] MEDS: SODIUM CHLOR 0.9% PF (SALINE LOCK) 10ML VIAL/SYR IV SCH ×3 (06:28→21:50)
[2019-12-22] MEDS: ACCU-CHEK COMFORT CURVE STRIP VI SCH ×4 (07:11→21:48)
[2019-12-22] MEDS: InsuLIN REG 1unit/0.01ml Soln (100units/ml) SC SCH ×4 (08:54→22:08)
[2019-12-22] MEDS: HYDROcodone-ACET 5/325MG TAB PO PRN ×2 (08:55→15:35)
--- NOTE | 2019-12-22 10:11 | NUR ---
Telemetry admit from [facility] admitted to Telemetry unit after SBAR received. Patient oriented to Og suresh RN, unit, room, bed, and unit policies regarding patient care and visiting hours. Patient now on continuous telemetry monitoring, tele box # 92 and telemetry reading on arrival to unit is v paced 81. Patient placed on bedside oxygen, weighed by bedscale and encouraged to call if they need something. All questions and concerns addressed, patient verbalized understanding. Note: Patient noted to be aaox4, pleasant and coopoerative and voiced no c/o pain at this time. Patient orientated to staff, unit and routine and patient verbalized understanding. admission assessment done and charted. Plan of care, medications and treatments discussed with patient and patient verbalized understanding. will continue to monitor patient.
[2019-12-22] MEDS: cefTRIAXone 1GM/50ML D5W 50 ML IV SCH (11:14)
[2019-12-22 13:00] VITALS: BP 122/72
[2019-12-22] MEDS ORDERED: AMIODARONE HCL 200 MG TAB PO ONE (13:00)
[2019-12-22] MEDS ORDERED: OPTISON 3ml Vial for INJ IV ONE (15:16)
--- NOTE | 2019-12-22 15:47 | NUR ---
WOUND CARE NOTE: Wound care in to see patient per wound care request regarding "Left Lower Extremity wound". Patient is 69 years old male with admitting diagnosis of Lt. Lower Extremity Cellulitis. Patient is resting in bed in Rm. 285A. Patient is awake, alert and oriented. He's medicated pain for pain by his bedside nurse prior skin/wound assessment. Patient has history R BKA with well healed stump. He's able to assist in turning and repositioning by grabbing onto bed rails. His Paulo score is 17. Skin/wound assessment done with the assistance of patient' s nurse, TIFFANIE Foley. Patient's L lateral lower leg/calf noted with 4.5x1.5x0.3cm open full thickness ulcer. Wound is red with yellow slough, with bright red periwound. Mild LLE edema noted. Scant serous drainage noted, no odor noted. Patient reported that he has had the Lt lateral calf wound for about a year. Patient is Diabetic and has history of peripheral arterial disease. Bedside nurse took specimen for wound culture and sent to lab for processing. Photograph of patient's L lateral calf wound are taken for reference. Patient seen by Pitch Worker Dr. Moura and ordered BID WTD dressing change with 1/4 strength Dakin's solution. TIFFANIE Foley at bedside for patient's dressing change awaiting pharmacy delivery of Dakin's solution. Superficial linear scratches also noted on patient's proximal Lt lower leg, which he reported from scratching. Repositioned patient for comfort facing his Rt side, redistribute pressure points with pillows. Patient tolerated well. RECOMMENDATION: Nursing to continue with BID dressing change to Lt lateral calf wound per MD order, BID/PRN cleaning and application of Barrier cream to sacral, buttocks as preventative, frequent turning and repositioning schedule as condition permits, redistribute pressure points with pillows, continue monitoring by wound care while patient is hospitalized. Addendum: 12/22/19 at 1634 by Abena Abellar RN Amended: Links added.
[2019-12-22 17:00] VITALS: BP 111/70
[2019-12-22] MEDS: FERROUS SULFATE 325 MG TAB PO SCH (17:56)
--- NOTE | 2019-12-22 19:50 | NUR ---
RECEIVED PATIENT FROM DAY SHIFT RN. PATIENT RESTING IN BED. NO S/S OF DISTRESS NOTED. PATIENT STATED NAUSEA IS BETTER AFTER MEDICATION GIVEN EARLIER. GASTON CATH IN PLACE DRAINING TO GRAVITY. OPEN WOUND NOTED ON POSTERIOR LEFT LOWER LEG NOTED. WILL COME BACK TO CLEAN THE WOUND AND APPLY DRESSING ON IT ORDERED. REPOSITIONED PATIENT TO COMFORT. REINFORCED PATIENT NPO AFTER MIDNIGHT FOR U/S IN THE MORNING. PATIENT VERBALIZED UNDERSTANDING. POC INSTRUCTED AND ENCOURAGED PATIENT TO CALL FOR AUDIO VISUAL EQUIPMENT RENTAL CLERK IF NEEDED. BED IN LOWEST POSITION WITH SIDE RAILS UP X 2. CALL ERAZO WITHIN REACH. ALARM ON. CONTINUE TO MONITOR FOR CHANGES Q1H AND PRN.
[2019-12-22] MEDS: APIXABAN 2.5 MG TAB PO SCH (21:48)
[2019-12-22] MEDS: DAKINS QUARTER STR 0.125% (NaHypochlorite) 473 ML TOPICAL SOL TOP SCH (21:53)
[2019-12-22 22:00] VITALS: BP_SYST 102; BP_SYST 94; BP_DIAS 32; BP_DIAS 54
[2019-12-22] MEDS ORDERED: APIXABAN 5 MG TAB PO SCH (22:00)
[2019-12-22] MEDS: ALPRAZolam 0.5 MG TAB PO PRN (22:07)
--- NOTE | 2019-12-22 22:30 | NUR ---
ACCU-CHECK, BS 138. INSULIN GIVEN ORDERED. CONTINUE TO MONITOR.
--- NOTE | 2019-12-22 23:05 | NUR ---
DRESSING CHANGED ON POSTERIOR LEFT LOWER LEG ORDERED. PATIENT TOLERATED WELL. CONTINUE TO MONITOR.
--- NOTE | 2019-12-23 01:06 | NUR ---
NPO AFTER MIDNIGHT. WATER AND FOOD REMOVED FROM PATIENT'S BEDSIDE. CONTINUE TO MONITOR
--- NOTE | 2019-12-23 04:25 | NUR ---
HOSPITALIST Called/paged CENTRAL OFFICE TROUBLE SHOOTER INNA called re: PATIENT C/O CHEST TIGHTNESS AND PAIN @ 9/10, PATIENT ALSO C/O HARD TO BREATH. PATIENT IS ON 2L/NC WITH O2 SAT @ 99%, VITALS, TEMP 98.3, HR 65, RR 20, BP 96/32, THE HIGHEST BP 105/40. EKG DONE, SHOWED PACED 56. PATIENT'S NOT SAFE PARAMETERS TO ADMINISTER NITROGLYCERIN, OFFERED MORPHINE PER PROTOCOL, PATIENT REFUSED TO HAVE MORPHINE SINCE HIS EXPERIENCE. Waiting for call back. Continue care.
--- NOTE | 2019-12-23 04:30 | NUR ---
HOSPITALIST returned call CD MANUFACTURING SUPERVISOR INNA returned call, updated on patient status and reason for call, ORDER TO CONTINUE TO MONITOR, SINCE THERE IS NO OTHER ORDER COULD GIVE FOR CHEST PAIN IF PATIENT REFUSES MORPHINE, WILL TRY TO TALK TO PATIENT AGAIN. Continue care.
--- NOTE | 2019-12-23 04:45 | NUR ---
PATIENT FINALLY AGREED TO HAVE MORPHINE FOR HIS CHEST PAIN. MEDICATED PATIENT ORDERED. CONTINUE TO MONITOR.
[2019-12-23 05:00] VITALS: BP 105/40
[2019-12-23 05:29] LABS: Basophils # (auto) 0 10 ^3/uL (0-0.2); Basophils % (auto) 0.9 % (0.0-2.0); Eosinophils # (auto) 0.1 10 ^3/uL (0-0.8); Eosinophils % (auto) 2.5 % (0.0-7.0); Hematocrit 32.6 % (41.0-53.0); Hemoglobin 10.6 g/dL (13.5-17.5); Lymphocytes # (auto) 0.7 10 ^3/uL (0.4-5.4); Lymphocytes % (auto) 17.3 % (10.0-50.0); Mean Corpuscular Hemoglobin 30.7 pg (28.0-32.0); Mean Corpuscular Hgb Conc. 32.6 g/dL (32.0-36.0); Mean Corpuscular Volume 94.1 fL (80.0-100.0); Monocytes # (auto) 0.5 10 ^3/uL (0-1.3); Monocytes % (auto) 11.2 % (0.0-12.0); Neutrophils # (auto) 2.8 10 ^3/uL (1.6-8.6); Neutrophils % (auto) 68.1 % (37.0-80.0); Nucleated Red Blood Cells % 0.1 %; Platelet Count (auto) 206 10^3/uL (140-450); Red Blood Cells 3.47 10^6/uL (4.5-5.90); Red Cell Distribution Width 15.5 % (11.8-14.3); White Blood Cell 4.2 10^3/uL (4.4-10.8)
--- NOTE | 2019-12-23 05:30 | NUR ---
REASSESSED BP 99/45, HR 68. PATIENT DENIED ANY CHEST DISCOMFORT AND PAIN. DENIED DIZZINESS, N/V, AND LIGHT HEADACHE. CONTINUE TO MONITOR.
[2019-12-23 06:09] LABS: Albumin 3.1 g/dL (3.4-5.0); BUN/Creatinine Ratio 15.7; Calcium 9.1 mg/dL (8.5-10.1); Potassium 5.4 mmol/L (3.5-5.1)
[2019-12-23 06:12] LABS: Bilirubin, Total 0.4 mg/dL (0.2-1.0); Total Protein 7.4 g/dL (6.4-8.2)
[2019-12-23] MEDS: CLINDAMYCIN 300MG IV 50 ML IV SCH ×3 (06:19→22:14)
[2019-12-23] MEDS: SODIUM CHLOR 0.9% PF (SALINE LOCK) 10ML VIAL/SYR IV SCH ×3 (06:19→22:15)
[2019-12-23] MEDS: ACCU-CHEK COMFORT CURVE STRIP VI SCH ×4 (06:20→22:22)
[2019-12-23] MEDS: InsuLIN REG 1unit/0.01ml Soln (100units/ml) SC SCH ×4 (06:20→22:10)
--- NOTE | 2019-12-23 07:35 | NUR ---
Opening Shift Note: Assumed care of patient, awake and alert. No S/S of distress/SOB or pain. Patient NPO at this time pending ultrasound. Bed in lowest locked position, side rails up x 2, call light within reach. Pastor patent and draining, hung lower than bladder. Patient instructed on POC and to call for assistance PRN, will continue to monitor for changes Q1hr and PRN.
[2019-12-23] MEDS ORDERED: SODIUM ZIRCONIUM CYCL 10 GM PAK PO ONE (08:15)
[2019-12-23] MEDS ORDERED: SODIUM BICARBONATE 8.4% INJ 50ML SYRINGE IV ONE (08:15)
[2019-12-23] MEDS ORDERED: ALBUTEROL SULF 2.5 MG/0.5ML(0.5%) NEB SOLN NEB ONE (08:15)
[2019-12-23] MEDS: cefTRIAXone 1GM/50ML D5W 50 ML IV SCH (08:36)
--- NOTE | 2019-12-23 08:53 | NUR ---
PATIENT OFF UNIT FOR ULTRASOUND AT THIS TIME.
[2019-12-23 09:00] VITALS: BP 111/48
[2019-12-23] MEDS ORDERED: AMIODARONE HCL 200 MG TAB PO SCH (10:00)
--- NOTE | 2019-12-23 10:07 | NUR ---
PATIENT BACK TO UNIT.
[2019-12-23] MEDS: FERROUS SULFATE 325 MG TAB PO SCH ×2 (11:16→18:02)
[2019-12-23] MEDS: APIXABAN 2.5 MG TAB PO SCH ×2 (11:17→22:14)
[2019-12-23] MEDS: DAKINS QUARTER STR 0.125% (NaHypochlorite) 473 ML TOPICAL SOL TOP SCH ×2 (11:18→22:21)
[2019-12-23] MEDS: CLOPIDOGREL BISULFATE 75 MG TAB PO SCH (11:18)
--- NOTE | 2019-12-23 11:20 | NUR ---
PER SHOP STEWARD, PATIENT HAD A RUN OF V. TACH. THIS RN CHECKED ON PATIENT. PATIENT STATED "IT SHOCKED ME." VITALS STABLE AT THIS TIME, HEART RATE PER TELE BOX IS [address] MORALES AT THIS TIME, PER MD "CALL DR. GONZALEZ." DR. GONZALEZ CONTACTED, NEW ORDERS RECEIVED, READ BACK AND VERIFIED.
[2019-12-23] MEDS ORDERED: AMIODARONE HCL 200 MG TAB PO ONE (12:00)
--- NOTE | 2019-12-23 12:04 | NUR ---
Nutrition Consult/assessment Note please see attached link fro complete assessment Est energy needs ABW 95 [id number] kcal (23-25 kcal/kg ABW), Est protein needs: 76-95 g (0.8-1.0 g/kg ABW r/t elev RFT CKD wounds) will reassess PRN Addendum: 12/23/19 at [address] Amended: Links added.
[2019-12-23] MEDS: ALPRAZolam 0.5 MG TAB PO PRN (12:11)
[2019-12-23] MEDS: MORPHINE SULFATE 4 MG/ML SYR/VIAL IV PRN ×2 (12:48→23:48)
[2019-12-23 12:53] VITALS: BP 117/65
[2019-12-23] MEDS: SODIUM ZIRCONIUM CYCL 10 GM PAK PO SCH ×2 (14:50→22:14)
--- NOTE | 2019-12-23 15:47 | NUR ---
WOUND CARE PERFORMED PER ORDERS.
[2019-12-23] MEDS ORDERED: FUROSEMIDE 40 MG/4 ML VIAL IV ONE (16:45)
[2019-12-23 16:48] VITALS: BP 110/60
--- NOTE | 2019-12-23 18:46 | NUR ---
CLOSING NOTE: PATIENT RESTING IN BED. NO S/S OF DISTRESS.
--- NOTE | 2019-12-23 19:35 | NUR ---
Opening Shift Note Assumed care of patient, awake and alert. Patient laying in bed. No S/S of distress/SOB or pain. Patient has 2L NC at bedside. Pastor catheter draining and hung below bladder. Safety measures maintained by keeping the bed locked in lowest position, 2 side rails up, personal items and call light within reach. Instructed on POC and to call for assist PRN, will continue to monitor for changes Q1hr and PRN.
[2019-12-23] MEDS: HYDROcodone-ACET 5/325MG TAB PO PRN (20:09)
[2019-12-23] MEDS: AMIODARONE HCL 200 MG TAB PO SCH (22:14)
[2019-12-24 00:08] VITALS: BP 113/54
[2019-12-24] MEDS: ALPRAZolam 0.5 MG TAB PO PRN ×2 (00:38→21:50)
[2019-12-24 05:29] LABS: Basophils # (auto) 0 10 ^3/uL (0-0.2); Basophils % (auto) 0.8 % (0.0-2.0); Eosinophils # (auto) 0.1 10 ^3/uL (0-0.8); Eosinophils % (auto) 2.4 % (0.0-7.0); Hematocrit 33.1 % (41.0-53.0); Hemoglobin 10.9 g/dL (13.5-17.5); Lymphocytes # (auto) 0.6 10 ^3/uL (0.4-5.4); Lymphocytes % (auto) 15.6 % (10.0-50.0); Mean Corpuscular Hemoglobin 30.9 pg (28.0-32.0); Mean Corpuscular Hgb Conc. 33.1 g/dL (32.0-36.0); Mean Corpuscular Volume 93.4 fL (80.0-100.0); Monocytes # (auto) 0.4 10 ^3/uL (0-1.3); Monocytes % (auto) 9.7 % (0.0-12.0); Neutrophils # (auto) 2.8 10 ^3/uL (1.6-8.6); Neutrophils % (auto) 71.5 % (37.0-80.0); Nucleated Red Blood Cells % 0.1 %; Platelet Count (auto) 206 10^3/uL (140-450); Red Blood Cells 3.54 10^6/uL (4.5-5.90); Red Cell Distribution Width 15.2 % (11.8-14.3)
[2019-12-24 05:35] VITALS: BP 118/64
[2019-12-24 05:42] LABS: Potassium 4.9 mmol/L (3.5-5.1)
[2019-12-24] MEDS: SODIUM ZIRCONIUM CYCL 10 GM PAK PO SCH ×2 (05:44→15:56)
[2019-12-24] MEDS: CLINDAMYCIN 300MG IV 50 ML IV SCH ×3 (05:44→21:48)
[2019-12-24 05:49] LABS: BUN/Creatinine Ratio 17.7; Calcium 9.2 mg/dL (8.5-10.1)
[2019-12-24] MEDS: SODIUM CHLOR 0.9% PF (SALINE LOCK) 10ML VIAL/SYR IV SCH ×3 (06:07→21:48)
[2019-12-24] MEDS: ACCU-CHEK COMFORT CURVE STRIP VI SCH ×4 (06:07→21:49)
[2019-12-24] MEDS: InsuLIN REG 1unit/0.01ml Soln (100units/ml) SC SCH ×4 (06:29→21:55)
--- NOTE | 2019-12-24 07:20 | NUR ---
Opening Shift Note: Assumed care of patient. Patient asleep at this time. No S/S of distress/SOB or pain. Respirations even and unlabored. Bed in lowest locked position, side rails up x 2, call light within reach. Patient instructed on POC and to call for assist PRN, will continue to monitor for changes Q1hr and PRN.
--- NOTE | 2019-12-24 07:30 | NUR ---
PATIENT HEART RATE AT THIS TIME IS 137 BPM. PATIENT ASSESSED, VITALS SIGNS STABLE. NO DISTRESS NOTED. WILL CONTINUE TO MONITOR.
[2019-12-24] MEDS: FERROUS SULFATE 325 MG TAB PO SCH ×2 (07:48→17:24)
[2019-12-24] MEDS: MORPHINE SULFATE 4 MG/ML SYR/VIAL IV PRN ×3 (07:49→17:05)
--- NOTE | 2019-12-24 07:57 | NUR ---
PATIENT HEART RATE 188 AT THIS TIME. PATIENT ASSESSED. WILL CONTINUE TO MONITOR.
--- NOTE | 2019-12-24 08:43 | NUR ---
PATIENT REPOSITIONED AT THIS TIME. DURING TURN, PATIENT STATES "I FEEL LIKE ITS GOING TO SHOCK ME." A MOMENT LATER PATIENT YELLED OUT "IT SHOCKED ME." PATIENT HEART RATE ON TELE MONITOR AT THIS TIME IS 68. PATIENT STATES "I FEEL BETTER NOW." WILL CONTINUE TO MONITOR.
[2019-12-24 09:00] VITALS: BP 113/66
[2019-12-24] MEDS: cefTRIAXone 1GM/50ML D5W 50 ML IV SCH (09:08)
[2019-12-24] MEDS: AMIODARONE HCL 200 MG TAB PO SCH ×2 (09:09→21:48)
[2019-12-24] MEDS: APIXABAN 2.5 MG TAB PO SCH ×2 (09:09→21:48)
[2019-12-24] MEDS: CLOPIDOGREL BISULFATE 75 MG TAB PO SCH (09:10)
[2019-12-24] MEDS: DAKINS QUARTER STR 0.125% (NaHypochlorite) 473 ML TOPICAL SOL TOP SCH ×2 (09:10→21:49)
[2019-12-24 13:00] VITALS: BP 93/48
[2019-12-24 17:00] VITALS: BP 117/44
--- NOTE | 2019-12-24 17:00 | NUR ---
WOUND CARE PERFORMED AT THIS TIME.
--- NOTE | 2019-12-24 18:49 | NUR ---
CLOSING NOTE: PATIENT RESTING IN BED. NO S/S OF DISTRESS.
[2019-12-24 21:00] VITALS: BP 122/58
[2019-12-24] MEDS: HYDROcodone-ACET 5/325MG TAB PO PRN (22:07)
--- NOTE | 2019-12-24 22:07 | NUR ---
pt's wound care performed, per MD order, pt tolerated well
--- NOTE | 2019-12-25 02:17 | NUR ---
Call out to hospitalist r/t pt requesting benadryl for itching states its from his ABT, and has been asking...
[2019-12-25] MEDS ORDERED: diphenhdrAMINE HCL 25 MG CAP PO ONE (03:45)
[2019-12-25 05:00] VITALS: BP 109/40
[2019-12-25] MEDS: CLINDAMYCIN 300MG IV 50 ML IV SCH ×3 (06:09→21:29)
[2019-12-25] MEDS: SODIUM CHLOR 0.9% PF (SALINE LOCK) 10ML VIAL/SYR IV SCH ×3 (06:09→21:29)
[2019-12-25] MEDS: ACCU-CHEK COMFORT CURVE STRIP VI SCH ×4 (06:10→21:22)
--- NOTE | 2019-12-25 06:28 | NUR ---
pt has an order to swab wound for culture but wound bed is dry, also onl had benadryl as a one time dose. he states it really helped the itching, will communicate both issues to day shift nurse.
[2019-12-25] MEDS: InsuLIN REG 1unit/0.01ml Soln (100units/ml) SC SCH ×4 (06:32→21:22)
[2019-12-25 06:59] LABS: Calcium 8.9 mg/dL (8.5-10.1); Magnesium 2.5 mg/dL (1.6-2.6); Potassium 4.5 mmol/L (3.5-5.1)
[2019-12-25 07:01] LABS: BUN/Creatinine Ratio 20.5; Phosphorus 3.6 mg/dL (2.5-4.90)
[2019-12-25 09:00] VITALS: BP 122/71
[2019-12-25] MEDS: FERROUS SULFATE 325 MG TAB PO SCH ×2 (09:40→17:18)
[2019-12-25] MEDS: cefTRIAXone 1GM/50ML D5W 50 ML IV SCH (09:41)
[2019-12-25] MEDS: DAKINS QUARTER STR 0.125% (NaHypochlorite) 473 ML TOPICAL SOL TOP SCH ×2 (09:41→21:22)
[2019-12-25] MEDS: APIXABAN 2.5 MG TAB PO SCH ×2 (09:41→21:30)
[2019-12-25] MEDS: CLOPIDOGREL BISULFATE 75 MG TAB PO SCH (09:41)
[2019-12-25] MEDS: AMIODARONE HCL 200 MG TAB PO SCH ×2 (09:41→21:29)
[2019-12-25] MEDS: MORPHINE SULFATE 4 MG/ML SYR/VIAL IV PRN ×2 (10:35→16:39)
--- NOTE | 2019-12-25 12:28 | NUR ---
DR. THOMPSON: DR. MORALES AT BEDSIDE.
[2019-12-25] MEDS ORDERED: diphenhdrAMINE-ZINC ACETATE 1 APPLIC APPL TOP PRN (12:30)
--- NOTE | 2019-12-25 12:30 | NUR ---
PATIENT HEART RATE INTERMITTENTLY TACHY, MADE AWARE.
[2019-12-25 13:00] VITALS: BP 120/66
--- NOTE | 2019-12-25 13:32 | NUR ---
PATIENT STATES " I THINK ITS GOING TO SHOCK ME." PATIENT SCREAMS, THEN PROCEEDS TO STATE "IT SHOCKED ME." THIS RN CHECKED TELE MONITOR AND IT SHOWS PATIENT HAD 32 SECOND RUN OF V. TACH PRIOR TO SHOCK. PATIENT NOW SHOWING PACED AT 82. WILL MAKE MD AWARE
--- NOTE | 2019-12-25 13:43 | NUR ---
WOUND CARE PERFORMED.
[2019-12-25 17:00] VITALS: BP 124/62
[2019-12-25] MEDS: diphenhdrAMINE HCL 25 MG CAP PO PRN ×2 (17:19→21:34)
--- NOTE | 2019-12-25 19:13 | NUR ---
CLOSING NOTE: Patient resting in bed. no S/S of distress. care endorsed.
[2019-12-25] MEDS: HYDROcodone-ACET 5/325MG TAB PO PRN (21:35)
[2019-12-25] MEDS: ALPRAZolam 0.5 MG TAB PO PRN (21:35)
[2019-12-25 22:00] VITALS: BP 118/67
[2019-12-26 05:00] VITALS: BP 124/80
[2019-12-26] MEDS ORDERED: DIGOXIN (250MCG/ML) 2 ML AMPULE IV ONE (05:30)
--- NOTE | 2019-12-26 05:30 | NUR ---
PT C/O BEING IN "DEFIB" FOR [address] Walker CALLED. RECEIVED ORDERS FOR EKG AND DIGOXIN 0.125 MG iv NOW.
--- NOTE | 2019-12-26 05:48 | NUR ---
EKG COMPLETED, AWAITING FOR ORDER TO COME UP IN [facility], OFF SITE PHARMACY NOTIFIED.
[2019-12-26 06:04] LABS: BUN/Creatinine Ratio 19.6; Calcium 9.3 mg/dL (8.5-10.1); Potassium 4.1 mmol/L (3.5-5.1)
[2019-12-26] MEDS: SODIUM CHLOR 0.9% PF (SALINE LOCK) 10ML VIAL/SYR IV SCH ×3 (06:25→22:01)
[2019-12-26] MEDS: CLINDAMYCIN 300MG IV 50 ML IV SCH ×3 (06:25→21:36)
[2019-12-26] MEDS: InsuLIN REG 1unit/0.01ml Soln (100units/ml) SC SCH ×4 (06:26→22:00)
[2019-12-26] MEDS: ACCU-CHEK COMFORT CURVE STRIP VI SCH ×4 (06:26→21:49)
[2019-12-26 09:00] VITALS: BP 144/76
[2019-12-26] MEDS: cefTRIAXone 1GM/50ML D5W 50 ML IV SCH (09:03)
[2019-12-26] MEDS: APIXABAN 2.5 MG TAB PO SCH ×2 (09:04→21:37)
[2019-12-26] MEDS: CLOPIDOGREL BISULFATE 75 MG TAB PO SCH (09:04)
[2019-12-26] MEDS: FERROUS SULFATE 325 MG TAB PO SCH ×2 (09:04→17:11)
[2019-12-26] MEDS: AMIODARONE HCL 200 MG TAB PO SCH ×2 (09:04→21:42)
[2019-12-26] MEDS: DAKINS QUARTER STR 0.125% (NaHypochlorite) 473 ML TOPICAL SOL TOP SCH ×2 (09:05→21:37)
--- NOTE | 2019-12-26 09:38 | NUR ---
Informed Dr. Strauss regarding HR still 100-140, received new order, noted and carried it out.
[2019-12-26] MEDS ORDERED: METOPROLOL SUCCINATE XL 50 MG TAB PO ONE ×2 (09:45→13:15)
--- NOTE | 2019-12-26 11:24 | NUR ---
Informed Dr. Strauss regarding HR still 100-130 after given Metoprolol , received new orders, noted and carried it out.
[2019-12-26] MEDS: FLORASTOR (S. BOULARDII) 250 MG CAP PO SCH (11:45)
[2019-12-26 13:00] VITALS: BP 125/69
--- NOTE | 2019-12-26 14:53 | NUR ---
Informed Dr. Strauss regarding HR about 100s teen after given the 2rd dose of Metoprolol.
--- NOTE | 2019-12-26 14:54 | NUR ---
Per Dr. Strauss , patient will get a cardioversion tomorrow.
--- NOTE | 2019-12-26 15:01 | NUR ---
Nutrition Followup Note Pt wt is 114.9 kg Pt curtain was drawn when rounded this morning. Pt is with a Renal Standard diet, appetite is fair aeb ave 58% PO intake over 3 meals per RN doc. Refer to dietary recommendations noted below under Comments. Est energy needs ABW 95 [id number] kcal (23-25 kcal/kg ABW), Est protein needs: 76-95 g (0.8-1.0 g/kg ABW r/t elev RFT CKD wounds) Will reassess PRN LABS: BUN 32 H, CREAT 1.63 H, GFR 45 L, GLUC 214 H, CA 7.9 L, ALB 3.1 L GI: Pt had 1 BM on 12/21 per RN doc. BS: 16 mod risk. Refer to wound assessment report for full details. PES: Altered nutrition related lab values r/t current chronic medical condition aeb elev RFT A1C mild hypoalb Decreased nutrient needs r.t adiposity aeb pt`s high BMI of 36.0 kgm2 Comments Will continue to monitor PO status, skin status, pertinent labs and weight trends. Will f/u in 3-5 days 1) Consider CCHO 60 gm/Renal Specific 90 gm protein 2 gm Na as pt not on HD 2) Refer to CDE on DC 3) Consider MVI/C bid 4) Continue current plan of care
[2019-12-26] MEDS: ALPRAZolam 0.5 MG TAB PO PRN (16:26)
[2019-12-26 17:00] VITALS: BP 117/68
--- NOTE | 2019-12-26 20:00 | NUR ---
Opening Shift Note Assumed care of patient, awake and alert. No S/S of distress/SOB or pain. Instructed on POC and to callf or assist PRN, will continue to monitor for changes Q1hr and PRN.Dressing done in the left leg as ordered.
[2019-12-26 22:00] VITALS: BP 113/70
[2019-12-27] VITALS (7 sets, daily range): BP systolic 103–128; BP diastolic 68–82
[2019-12-27] MEDS: CLINDAMYCIN 300MG IV 50 ML IV SCH ×3 (05:33→22:12)
[2019-12-27] MEDS: ACCU-CHEK COMFORT CURVE STRIP VI SCH ×4 (06:19→22:14)
[2019-12-27] MEDS: InsuLIN REG 1unit/0.01ml Soln (100units/ml) SC SCH ×4 (06:19→22:19)
[2019-12-27] MEDS: SODIUM CHLOR 0.9% PF (SALINE LOCK) 10ML VIAL/SYR IV SCH ×3 (06:19→22:13)
--- NOTE | 2019-12-27 07:36 | NUR ---
Report given to Cain Ashford and told that the patient is hallucinating seeing dogs, saying that the blanket is wet but is not, and patient told that there is no dogs inside the room, and patient refused blood work and insulin this morning.
--- NOTE | 2019-12-27 08:50 | NUR ---
medical laboratory specialist patient taken down to roofing laborer for procedure by staff, no s/ s of distress noted/stated.
[2019-12-27 08:53] LABS: BUN/Creatinine Ratio 20.8; Calcium 9.3 mg/dL (8.5-10.1); Potassium 4.2 mmol/L (3.5-5.1)
[2019-12-27 09:08] LABS: INR 1.24 (0.9-1.15); Partial Thromboplastin Time 30.7 sec (23.0-31.2)
[2019-12-27] MEDS ORDERED: MIDAZOLAM HCL 1MG/1ML-2 ML VIAL IV ONE (09:15)
[2019-12-27] MEDS ORDERED: fentaNYL CITRATE 100 MCG/2 ML VL IV ONE (09:15)
[2019-12-27] MEDS: METOPROLOL SUCCINATE XL 50 MG TAB PO SCH ×2 (09:29→22:14)
[2019-12-27] MEDS: DAKINS QUARTER STR 0.125% (NaHypochlorite) 473 ML TOPICAL SOL TOP SCH ×2 (10:00→22:15)
[2019-12-27] MEDS: FERROUS SULFATE 325 MG TAB PO SCH ×2 (10:10→18:00)
[2019-12-27] MEDS: cefTRIAXone 1GM/50ML D5W 50 ML IV SCH (10:11)
[2019-12-27] MEDS: CLOPIDOGREL BISULFATE 75 MG TAB PO SCH (10:12)
[2019-12-27] MEDS: FLORASTOR (S. BOULARDII) 250 MG CAP PO SCH (10:12)
[2019-12-27] MEDS: APIXABAN 2.5 MG TAB PO SCH ×2 (10:15→22:13)
[2019-12-27] MEDS: AMIODARONE HCL 200 MG TAB PO SCH ×3 (10:15→22:13)
[2019-12-27] MEDS: HYDROcodone-ACET 5/325MG TAB PO PRN (10:32)
--- NOTE | 2019-12-27 10:33 | NUR ---
pain patient c/o lower back pain, rates it /10. Will medicate as prescribed by MD.
--- NOTE | 2019-12-27 12:20 | NUR ---
PATIENT OUT OF BED. PATIENT SITTING IN WHEELCHAIR. WILL CONTINUE TO MONITOR.
[2019-12-27] MEDS ORDERED: AMIODARONE HCL 200 MG TAB PO SCH (14:00)
--- NOTE | 2019-12-27 14:00 | NUR ---
Rounds Patient is confused and does not know where he is and or how he got here, re-oriented patient. Dr Eagle at bedside, MD aware and informed. Will continue to monitor PRN.
--- NOTE | 2019-12-27 16:36 | NUR ---
HEAD CT PATIENT IS REFUSING HEAD CT, PER PATIENT," I JUST HAD ONE IN [facility], AND IT WAS FINE". PATIENT WAS EDUCATED ON REASON FOR ORDERING TEST. PATIENT ACKNOWLEDGE UNDERSTANDING AND IS REFUSING. MD INFORMED/AWARE.
--- NOTE | 2019-12-27 18:34 | NUR ---
per SEISMOGRAPH HELPER, patient is confused and is stating," someone come help me the wind sucked me up and Im stuck in the tyler". attempted to re-orient once again. Bed is at lowest locked position bed alarm is on and call light is within reach. Will continue to monitor.
--- NOTE | 2019-12-27 19:31 | NUR ---
closing note patient is comfortably resting in bed, no s/s of distress/sob noted/stated. bed at lowest locked position and call light within reach. care endorsed to noc TIFFANIE Rodriguez.
--- NOTE | 2019-12-27 19:35 | NUR ---
Opening Shift Note Assumed care of patient. Patient is awake and alert, oriented X 2. No S/S of respiratory distress. Patient denies pain at this time. Pastor is patent, below the bladder level. Bed in lowest locked position, bed rails up X 3 and bed alarm ON for patient safety, call light is within reach. Instructed on POC and to call for assistance as needed. Will continue to monitor for changes Q1hr and PRN.
--- NOTE | 2019-12-27 21:00 | NUR ---
Hygiene Pt had a BM. Bed linen changed. Patient is resting in wheelchair. Will continue monitor and deliver pt's care.
--- NOTE | 2019-12-28 03:44 | NUR ---
Dressing changed Dressing was changed. Minimum drainage. Wound irrigated with 1/4 Dakins solution. Patted dry. Optifoam applied. Patient tolerated well.
[2019-12-28 05:00] VITALS: BP 119/83
[2019-12-28] MEDS: AMIODARONE HCL 200 MG TAB PO SCH ×3 (06:12→22:06)
[2019-12-28] MEDS: CLINDAMYCIN 300MG IV 50 ML IV SCH (06:12)
[2019-12-28] MEDS: SODIUM CHLOR 0.9% PF (SALINE LOCK) 10ML VIAL/SYR IV SCH ×3 (06:12→22:06)
[2019-12-28] MEDS: ACCU-CHEK COMFORT CURVE STRIP VI SCH ×4 (06:13→22:05)
[2019-12-28 06:41] LABS: BUN/Creatinine Ratio 18.5; Calcium 9.1 mg/dL (8.5-10.1)
[2019-12-28] MEDS: InsuLIN REG 1unit/0.01ml Soln (100units/ml) SC SCH ×4 (06:42→22:03)
--- NOTE | 2019-12-28 07:20 | NUR ---
OPENING NOTE ASSUMED CARE OF PT. PT CONFUSED, ALERT TO SELF. NO S/S OF SOB/DISTRESS NOTED. BED SET TO LOWEST POSITION/LOCKED, BEDSIDE RAILS UP X2, CALL LIGHT WITHIN REACH, BED ALARM ON FOR SAFETY. WILL CONTINUE TO MONITOR Q1HR AND PRN FOR CHANGES.
[2019-12-28] MEDS: FERROUS SULFATE 325 MG TAB PO SCH ×2 (08:44→17:16)
[2019-12-28 09:00] VITALS: BP 115/70
[2019-12-28] MEDS: FLORASTOR (S. BOULARDII) 250 MG CAP PO SCH (10:23)
[2019-12-28] MEDS: APIXABAN 2.5 MG TAB PO SCH ×2 (10:23→22:05)
[2019-12-28] MEDS: DAKINS QUARTER STR 0.125% (NaHypochlorite) 473 ML TOPICAL SOL TOP SCH ×2 (10:24→22:05)
[2019-12-28] MEDS: METOPROLOL SUCCINATE XL 50 MG TAB PO SCH ×2 (10:24→22:07)
[2019-12-28] MEDS: CLOPIDOGREL BISULFATE 75 MG TAB PO SCH (10:24)
[2019-12-28 13:00] VITALS: BP 110/68
[2019-12-28] MEDS ORDERED: DIGOXIN (250MCG/ML) 2 ML AMPULE IV ONE (13:00)
--- NOTE | 2019-12-28 15:03 | NUR ---
ADVANCE DIRECTIVE AND POA PLACED IN PATIENTS CHART.
[2019-12-28 17:00] VITALS: BP 136/88
[2019-12-28] MEDS: CEPHALEXIN 250 MG CAP PO SCH ×2 (17:16→23:18)
--- NOTE | 2019-12-28 17:30 | NUR ---
PATIENT HAS BEEN MOVED TO ROOM 276A WITH ALL PERSONAL BELONGINGS.
--- NOTE | 2019-12-28 18:44 | NUR ---
NEXT OF KIN PLEASE CALL SON DICK , IF ANY ISSUES ARISE WITH FATHER. PER SON PATIENT CAN GET AGGRESSIVE.
--- NOTE | 2019-12-28 19:25 | NUR ---
Opening note Assumed care of patient, patient is alert and orientated x3. With periods of confusion. Patient is also upset because he is seeing things that no one else sees. Re orientated patient to his surroundings. Bed is locked in lowest position, side rails up x3 No sob or distress noted. Call light within reach, will continue to monitor q1hr and PRN.
--- NOTE | 2019-12-28 20:00 | NUR ---
Patient moved to 277A Patient has been moved to a sitter room. Patient is alert x4, but he is seeing things that are not there. And patient has periods of confusion. Patient is getting agitated and wants to speak with charge nurse. Charge nurse made the decision to move patient to a sitter patient. Patient moved with all belongings. He is now resting in bed.
[2019-12-28 22:00] VITALS: BP 124/82
--- NOTE | 2019-12-28 22:02 | NUR ---
Paged Hospitalist Patient states he cant get any sleep here. Patient states he takes a sleeping pill Temazepam at home. Pagenitin AVILES regarding continuing sleeping pill. Will await call back.
[2019-12-28] MEDS: HYDROcodone-ACET 5/325MG TAB PO PRN (22:08)
--- NOTE | 2019-12-28 22:48 | NUR ---
Hospitalist paged back. New orders received and verified. Will follow through and continue to monitor patient.
[2019-12-28] MEDS ORDERED: TEMAZEPAM 15 MG CAP PO PRN (23:00)
[2019-12-29 05:00] VITALS: BP 127/59
--- NOTE | 2019-12-29 05:38 | NUR ---
Dressing changed Dressing changed to left leg. No drainage noted. Patient tolerated well. Will continue to monitor.
[2019-12-29] MEDS: CEPHALEXIN 250 MG CAP PO SCH ×3 (06:00→17:42)
[2019-12-29] MEDS: SODIUM CHLOR 0.9% PF (SALINE LOCK) 10ML VIAL/SYR IV SCH ×3 (06:00→22:00)
[2019-12-29] MEDS: AMIODARONE HCL 200 MG TAB PO SCH ×3 (06:00→22:54)
--- NOTE | 2019-12-29 06:02 | NUR ---
Paged Hospitalist Paged hospitalist regarding patient being non compliant and not wanting to take his amiodarone, keflex and acu check. Patient is agitated. But does not want to take his xanax. Will await call back.
--- NOTE | 2019-12-29 06:12 | NUR ---
Hospitalist paged back Explained to doctor that patient is agitated and does not want to take his six and seven oclock meds including amioderone, keflex and and accu check. Hr 104. Hospitalist said ok just document and pass it on. Will let day shift nurse know. Will continue to monitor.
[2019-12-29] MEDS: InsuLIN REG 1unit/0.01ml Soln (100units/ml) SC SCH ×4 (06:46→22:54)
[2019-12-29] MEDS: ACCU-CHEK COMFORT CURVE STRIP VI SCH ×4 (06:46→22:00)
--- NOTE | 2019-12-29 07:22 | NUR ---
Closing note Endorsed care to day shift RN Haley No sob or distress noted.
--- NOTE | 2019-12-29 07:22 | NUR ---
OPENING SHIFT NOTE Assumed care of patient from shift engineer RN. Maria Isabel noted at bedside. Patient is alert and oriented x4, he is hallucinating stating "they are crawling in my bed" Patient was reoriented, complaining of 5/10 pain in left leg, will medicate as ordered. He was updated on the plan of care and verbalized understanding. He has a yoo noted draining clear yellow urine to gravity, no kinks or loops noted. wound dressing to left lower leg is clean dry and intact. Bed is locked, in the lowest position, side rails are up x4 and call light is in reach. Was encouraged to call for assistance.
[2019-12-29 08:30] VITALS: BP 122/70
[2019-12-29] MEDS: FERROUS SULFATE 325 MG TAB PO SCH ×2 (08:34→17:42)
[2019-12-29] MEDS: HYDROcodone-ACET 5/325MG TAB PO PRN (08:34)
[2019-12-29] MEDS: FLORASTOR (S. BOULARDII) 250 MG CAP PO SCH (09:53)
[2019-12-29] MEDS: APIXABAN 2.5 MG TAB PO SCH ×2 (09:53→22:55)
[2019-12-29] MEDS: CLOPIDOGREL BISULFATE 75 MG TAB PO SCH (09:53)
[2019-12-29] MEDS: METOPROLOL SUCCINATE XL 50 MG TAB PO SCH ×2 (09:54→22:55)
[2019-12-29] MEDS: DAKINS QUARTER STR 0.125% (NaHypochlorite) 473 ML TOPICAL SOL TOP SCH ×2 (09:54→22:00)
--- NOTE | 2019-12-29 10:29 | NUR ---
ANDREW AT BEDSIDE plan of care discussed with the patient and he verbalized understanding. New order for consult for [facility] placement.
--- NOTE | 2019-12-29 11:32 | NUR ---
PATIENT REFUSING MEDS he was educated on the need for his accucheck and his Keflex. Patient verbalized understanding and continued to refuse.
--- NOTE | 2019-12-29 12:09 | NUR ---
PATIENT REFUSING TO TURN educated on the importance of turning, verbalized understanding and refused. Will attempt again later.
[2019-12-29] MEDS: DIGOXIN 0.125 MG TAB PO SCH (12:29)
--- NOTE | 2019-12-29 13:00 | NUR ---
PATIENT REFUSING VITALS He was educated on the need for vitals to be done, he verbalized understanding and continues to refuse.
--- NOTE | 2019-12-29 14:00 | NUR ---
Respiratory note: PATIENT REFUSING ABG. PATIENT SAID HE WOULD BE COMBATIVE.
--- NOTE | 2019-12-29 14:13 | NUR ---
Nutrition Followup Note Wt: 112.4 kg Pt sleeping when rounded this morning. Pt is with a Renal Standard cardiac diet, with adequate Po of 75% x 4 per RN doc Est energy needs ABW 95 [id number] kcal (23-25 kcal/kg ABW), , Est protein needs: 76-95 g (0.8-1.0 g/kg ABW r/t elev RFT CKD wounds). Will reassess PRN LABS: BUN 32 H, CREAT 1.73 H, GFR 45 L, GLUC 198 H GI: Pt had 2 BM on 12/26 per RN doc. BS: 13 mod risk. Refer to wound assessment report for full details. PES: Altered nutrition related lab values r/t current chronic medical condition aeb elev RFT A1C mild hypoalb Decreased nutrient needs r.t adiposity aeb pt`s high BMI of 36.0 kgm2 Comments Will continue to monitor PO status, skin status, pertinent labs and weight trends. Will f/u in 3-5 days 1) Consider CCHO 60 gm/Renal Specific 90 gm protein 2 gm Na as pt not on HD. 2) Refer to CDE on DC. 3) Consider MVI/C bid 4) Continue current plan of care
--- NOTE | 2019-12-29 14:44 | NUR ---
BRADLY SWAB walked to lab by kristie.
--- NOTE | 2019-12-29 14:55 | NUR ---
CALLED ANDREW to update on Carlos A communication order to hold DC. AVILES aware.
--- NOTE | 2019-12-29 16:16 | NUR ---
ASSESSMENT Patient is a 69 year old male who is confused. Prior to admission patient resided at [facility]. Per patients son Mark Fernández patient will return to [facility] on discharge. Patient uses a wheelchair at the facility. Patients PCP is Dr Blake at [facility]. Mark is patients MOHINI. Danyelle Rosenbaum1 will work on ss consult for patient to return to [facility]. I informed Mark Fernández I will continue to monitor and follow up as appropriate for any other post discharge needs. Mark Fernández verbalized understanding and agreed to discharge plan back to [facility]. Addendum: 12/29/19 at 1622 by Yue HOFF Amended: Links added.
[2019-12-29 16:34] LABS: Urine WBC None Seen /hpf (0 - 3)
[2019-12-29 16:49] LABS: Urine Bacteria FEW /hpf (None Seen); Urine Blood 1+ /uL (Negative); Urine Hyaline Cast MOD /lpf (0 - 2); Urine Mucus FEW (None Seen); Urine Specific Gravity 1.023 (1.001-1.035)
[2019-12-29 17:00] VITALS: BP 125/80
[2019-12-29 21:00] VITALS: BP 127/78
[2019-12-30] MEDS: CEPHALEXIN 250 MG CAP PO SCH ×4 (00:37→17:57)
[2019-12-30 05:00] VITALS: BP 128/87
--- NOTE | 2019-12-30 05:18 | NUR ---
In house covid swab walked to lab
[2019-12-30] MEDS: SODIUM CHLOR 0.9% PF (SALINE LOCK) 10ML VIAL/SYR IV SCH ×3 (05:49→22:00)
[2019-12-30 06:07] LABS: Basophils # (auto) 0.1 10 ^3/uL (0-0.2); Basophils % (auto) 0.7 % (0.0-2.0); Eosinophils # (auto) 0.1 10 ^3/uL (0-0.8); Hematocrit 37.1 % (41.0-53.0); Hemoglobin 12.2 g/dL (13.5-17.5); Lymphocytes # (auto) 1.1 10 ^3/uL (0.4-5.4); Lymphocytes % (auto) 14.6 % (10.0-50.0); Mean Corpuscular Volume 93.9 fL (80.0-100.0); Monocytes # (auto) 0.6 10 ^3/uL (0-1.3); Monocytes % (auto) 7.7 % (0.0-12.0); Platelet Count (auto) 249 10^3/uL (140-450); Red Blood Cells 3.95 10^6/uL (4.5-5.90); Red Cell Distribution Width 14.9 % (11.8-14.3); White Blood Cell 7.8 10^3/uL (4.4-10.8)
[2019-12-30] MEDS: InsuLIN REG 1unit/0.01ml Soln (100units/ml) SC SCH ×4 (06:24→22:05)
[2019-12-30] MEDS: ACCU-CHEK COMFORT CURVE STRIP VI SCH ×4 (06:24→22:09)
[2019-12-30 06:27] LABS: BUN/Creatinine Ratio 20.2; Calcium 9.5 mg/dL (8.5-10.1); Potassium 4.2 mmol/L (3.5-5.1)
--- NOTE | 2019-12-30 07:33 | NUR ---
Pt behavior Pt is talking to hallucinations throughout shift. No dangerous or command hallucinations. Pt explains he is talking to Fabio, and other family members. Also with objects he believes that are there.
--- NOTE | 2019-12-30 07:34 | NUR ---
Care endorsed to AM RN. Pt is relaxed in bed. Bed at lowest position. No complaints of pain. Pastor is attached to right leg, not kinked. IV is patent, SL. Head of bed elevated 45 degrees. Sitter in room
[2019-12-30 09:00] VITALS: BP 120/83
[2019-12-30] MEDS: DAKINS QUARTER STR 0.125% (NaHypochlorite) 473 ML TOPICAL SOL TOP SCH ×2 (10:00→22:00)
--- NOTE | 2019-12-30 10:30 | NUR ---
WOUND CARE NOTE: IN TO SEE PATIENT AT THIS TIME FOR WOUND TO LEFT CALF. PATIENT IS CONFUSED, SITTER AT BEDSIDE. CURRENTLY PATIENT IS SLEEPING. CURRENT JESSICA SCORE IS 13. PATIENT'S DRESSING REMOVED TO LEFT CALF. STASIS ULCER TO THE LEFT CALF, APPEARS TO BE RESOLVED. THERE IS A LIGHT BROWN SCAB NOTED OVER WOUND. NO OPEN/DRAINING AREAS NOTED. LEFT OPEN TO AIR. NO OTHER WOUNDS SEEN AT THIS TIME. SKIN/WOUND CARE PLAN UPDATED. RECOMMEND: D/C DRESSING CHANGE ORDERS TO LLE, CONTINUATION WITH ALL OTHER WOUND CARE ORDERS PREVIOUSLY PRESCRIBED BY MD. WOUND CARE TEAM WILL CONTINUE TO MONITOR. Addendum: 12/30/19 at 1557 by Ameena Loera RN Amended: Links added.
[2019-12-30] MEDS: FLORASTOR (S. BOULARDII) 250 MG CAP PO SCH (11:08)
[2019-12-30] MEDS: FERROUS SULFATE 325 MG TAB PO SCH ×2 (11:08→17:54)
[2019-12-30] MEDS: CLOPIDOGREL BISULFATE 75 MG TAB PO SCH (11:08)
[2019-12-30] MEDS: APIXABAN 2.5 MG TAB PO SCH ×2 (11:09→22:06)
[2019-12-30] MEDS: METOPROLOL SUCCINATE XL 50 MG TAB PO SCH ×2 (11:13→22:05)
[2019-12-30] MEDS: AMIODARONE HCL 200 MG TAB PO SCH ×2 (11:14→22:06)
[2019-12-30 12:48] VITALS: BP 108/64
[2019-12-30 16:56] VITALS: BP 110/68
--- NOTE | 2019-12-30 19:18 | NUR ---
PT APPEARS TO BE MORE ALERT ET AWAKE SINCE THIS AM, ATE DINNER INDEPENDENTLY. RESTING IN BED. WC NURSE IN ROOM, STATED NO NEED FOR DRESSING ON LLE, WOUND SCABBED NO DRAINAGE NOTED SITTER IN ROOM [place] IN PLACE.
[2019-12-30 22:00] VITALS: BP 128/76
--- NOTE | 2019-12-30 22:00 | NUR ---
Wound care completed [place], pat dry, open to air.
[2019-12-31] MEDS: CEPHALEXIN 250 MG CAP PO SCH ×4 (00:43→18:00)
[2019-12-31 05:00] VITALS: BP 126/69
[2019-12-31] MEDS: SODIUM CHLOR 0.9% PF (SALINE LOCK) 10ML VIAL/SYR IV SCH ×3 (05:42→22:00)
--- NOTE | 2019-12-31 06:00 | NUR ---
Pt activity Pt is sleeping throughout the night. Minimum amount of hallucinations. Pt was compliant with medication and treatment.
[2019-12-31] MEDS: InsuLIN REG 1unit/0.01ml Soln (100units/ml) SC SCH ×4 (06:30→22:47)
[2019-12-31] MEDS: ACCU-CHEK COMFORT CURVE STRIP VI SCH ×4 (06:58→22:00)
[2019-12-31 09:00] VITALS: BP 110/63
[2019-12-31] MEDS: FERROUS SULFATE 325 MG TAB PO SCH ×2 (09:00→18:00)
[2019-12-31] MEDS: ONDANSETRON HCL 4 MG/2 ML VIAL IV PRN (09:59)
[2019-12-31] MEDS: FLORASTOR (S. BOULARDII) 250 MG CAP PO SCH (10:01)
[2019-12-31] MEDS: CLOPIDOGREL BISULFATE 75 MG TAB PO SCH (10:02)
[2019-12-31] MEDS: APIXABAN 2.5 MG TAB PO SCH ×2 (10:03→21:59)
[2019-12-31] MEDS: AMIODARONE HCL 200 MG TAB PO SCH ×2 (10:04→21:59)
[2019-12-31] MEDS: METOPROLOL SUCCINATE XL 50 MG TAB PO SCH ×2 (10:15→22:00)
[2019-12-31] MEDS: DAKINS QUARTER STR 0.125% (NaHypochlorite) 473 ML TOPICAL SOL TOP SCH ×2 (10:16→22:00)
[2019-12-31] MEDS: DIGOXIN 0.125 MG TAB PO SCH (12:44)
[2019-12-31 13:00] VITALS: BP 107/49
[2019-12-31] MEDS ORDERED: CLINDAMYCIN 600MG IV 50 ML IV SCH (14:00)
[2019-12-31 17:00] VITALS: BP 102/59
--- NOTE | 2019-12-31 18:00 | NUR ---
no complaints. pt had bouts of nausea, no active vomiting. no pain. yoo iin place, appears patent. denies any needs. pt a/o x's 4.
[2019-12-31 22:00] VITALS: BP 102/62
[2020-01-01] MEDS: CEPHALEXIN 250 MG CAP PO SCH ×3 (00:53→11:38)
[2020-01-01 05:00] VITALS: BP 120/48
[2020-01-01] MEDS: SODIUM CHLOR 0.9% PF (SALINE LOCK) 10ML VIAL/SYR IV SCH (06:00)
[2020-01-01] MEDS: InsuLIN REG 1unit/0.01ml Soln (100units/ml) SC SCH ×2 (06:11→11:59)
[2020-01-01] MEDS: ACCU-CHEK COMFORT CURVE STRIP VI SCH ×2 (07:00→11:30)
--- NOTE | 2020-01-01 07:15 | NUR ---
End of shift note: Pt was Alert oriented x4 throughout the night. No hallucinations or episodes of confusion noted. Pt compliant with care and treatment.
[2020-01-01] MEDS: FERROUS SULFATE 325 MG TAB PO SCH (07:49)
[2020-01-01 09:00] VITALS: BP 102/52
[2020-01-01] MEDS: FLORASTOR (S. BOULARDII) 250 MG CAP PO SCH (10:00)
[2020-01-01 11:16] LABS: BUN/Creatinine Ratio 19.7; Calcium 8.7 mg/dL (8.5-10.1); Magnesium 2.2 mg/dL (1.6-2.6)
[2020-01-01] MEDS: APIXABAN 2.5 MG TAB PO SCH (11:38)
[2020-01-01] MEDS: CLOPIDOGREL BISULFATE 75 MG TAB PO SCH (11:38)
[2020-01-01] MEDS: AMIODARONE HCL 200 MG TAB PO SCH (11:39)
[2020-01-01] MEDS: METOPROLOL SUCCINATE XL 50 MG TAB PO SCH (11:43)
--- NOTE | 2020-01-01 12:26 | NUR ---
Nutrition Followup Note Wt: 109.5 kg Pt is with a Renal Standard Cardiac diet, with fair PO of 50% x 3 per RN doc. Pt with no s/s of distress or pain. Est energy needs ABW 95 [id number] kcal (23-25 kcal/kg ABW), , Est protein needs: 76-95 g (0.8-1.0 g/kg ABW r/t elev RFT CKD wounds). Will reassess PRN LABS: BUN 39 H, CREAT 1.93 H, GLUC 169 H GI: Pt had 1 BM on 12/31 per RN doc. BS: 13 mod risk. Refer to wound assessment report for full details. PES: Altered nutrition related lab values r/t current chronic medical condition aeb elev RFT A1C mild hypoalb Decreased nutrient needs r.t adiposity aeb pt`s high BMI of 36.0 kgm2 Comments Will continue to monitor PO status, skin status, pertinent labs and weight trends. Will f/u in 3-5 days 1) Consider CCHO 60 gm/Renal Specific 90 gm protein 2 gm Na as pt not on HD. 2) Refer to CDE on DC. 3) Consider MVI/C bid 4) Continue current plan of care
[2020-01-01 13:00] VITALS: BP 104/49
[2020-01-01] MEDS ORDERED: DIGO0.1238 PO (15:07)
[2020-01-01] MEDS ORDERED: CEPH250C PO (15:07)
[2020-01-01] MEDS ORDERED: DAKI0.12 TOP (15:07)
[2020-01-01] MEDS ORDERED: SACC250C PO (15:07)
[2020-01-01] MEDS ORDERED: METO-6 PO (15:07)
[2020-01-01] MEDS ORDERED: AMIO200T4 PO (15:07)
[2020-01-01] MEDS ORDERED: APIX2.5T PO (15:07)
[2020-01-01] MEDS: ONDANSETRON HCL 4 MG/2 ML VIAL IV PRN (15:56)
--- NOTE | 2020-01-01 18:30 | NUR ---
Discharge instructions given as ordered. Encourage to follow up with PMD as instructed. All questions and concerns addressed. Patient verbalized understanding. Medication reconciliation form completed and copy given to patient. IV removed with catheter intact, pressure dressing applied, yoo catheter removed. Telemetry unit returned to ICU. Patient taken to vehicle via wheelchair with all personal belongings, accompanied by staff and family member. No distress noted at time of departure. PT VOIDED WITHOUT DIFFICULTY.
== END 2020-01-01 19:00 | DRG 871 ==
LOC: ER 18:06 → TELE 18:07 → TELE-WESTW 12-22 10:28 → WEST WING 12-27 21:23 → TELE-WESTW 12-27 21:24
PROVIDERS: ADMIT Nurse Practitioner Family; ATTEND Family Medicine
DX: A41.9 Sepsis, unspecified organism (principal); N17.0 Acute kidney failure with tubular necrosis; L03.116 Cellulitis of left lower limb; I50.22 Chronic systolic (congestive) heart failure; N18.4 Chronic kidney disease, stage 4 (severe); I13.0 Hypertensive heart and chronic kidney disease with heart failure and stage 1 through stage 4 chronic kidney disease, or unspecified chronic kidney disease; E11.51 Type 2 diabetes mellitus with diabetic peripheral angiopathy without gangrene; E11.22 Type 2 diabetes mellitus with diabetic chronic kidney disease; D64.9 Anemia, unspecified; E66.01 Morbid (severe) obesity due to excess calories; R33.9 Retention of urine, unspecified; I25.10 Atherosclerotic heart disease of native coronary artery without angina pectoris; E87.5 Hyperkalemia; Z66 Do not resuscitate; I25.5 Ischemic cardiomyopathy; E11.621 Type 2 diabetes mellitus with foot ulcer; E78.5 Hyperlipidemia, unspecified; K21.9 Gastro-esophageal reflux disease without esophagitis; Z20.828 Contact with and (suspected) exposure to other viral communicable diseases; E11.40 Type 2 diabetes mellitus with diabetic neuropathy, unspecified; R65.20 Severe sepsis without septic shock; R41.0 Disorientation, unspecified; I25.2 Old myocardial infarction; Z89.611 Acquired absence of right leg above knee; Z82.49 Family history of ischemic heart disease and other diseases of the circulatory system; Z82.3 Family history of stroke; Z95.1 Presence of aortocoronary bypass graft; Z95.810 Presence of automatic (implantable) cardiac defibrillator; Z68.36 Body mass index [BMI] 36.0-36.9, adult; Z80.9 Family history of malignant neoplasm, unspecified; L97.529 Non-pressure chronic ulcer of other part of left foot with unspecified severity
CPT/HCPCS: 36415; 70450; 71045; 73700; 80048; 80053; 80061; 81001; 82306; 82962; 83036; 83605; 83735; 84100; 84484; 85025; 85610; 85730; 87040; 87077; 87081; 87086; 87186; 87205; 87426; 93005; 93306; 93925; 93971; 93975; 94640; 96365; 96366; 96368; G0378; J0696; J1815; J2250; J2405; J3490; Q9956

== ENCOUNTER 2020-01-10 14:49 | Inpatient (IN) | payer MEDICARE ==
[~2020-01-10] VITALS: Ht 177.8 cm; Wt 119.1 kg
[~2020-01-10 14:49] MED LIST changes: -AMIO200T33 PO; +AMIO200T4 PO; +APIX2.5T PO; -APIX5TAB4 PO; +CEPH250C PO; +DAKI0.12 TOP; +DIGO0.1238 PO; -LIS5T PO; -METF-370 PO; -METH-532 PO; +METO-6 PO; +SACC250C PO; -TEMA30CA5 PO; -TIZA4CAP PO
[2020-01-10] MEDS ORDERED: ASPirin 81 mg TAB PO ONE (17:30)
[2020-01-10 18:37] LABS: Calcium 8.2 mg/dL (8.5-10.1); Magnesium 2.4 mg/dL (1.6-2.6); Potassium 5.4 mmol/L (3.5-5.1)
[2020-01-10 18:42] LABS: BUN/Creatinine Ratio 15.5; Bilirubin, Total 0.4 mg/dL (0.2-1.0); Total Protein 7.2 g/dL (6.4-8.2)
[2020-01-10 18:43] LABS: Basophils # (auto) 0 10 ^3/uL (0-0.2); Basophils % (auto) 0.2 % (0.0-2.0); Eosinophils # (auto) 0 10 ^3/uL (0-0.8); Eosinophils % (auto) 0.3 % (0.0-7.0); Hematocrit 34.4 % (41.0-53.0); Hemoglobin 11.2 g/dL (13.5-17.5); Lymphocytes # (auto) 0.3 10 ^3/uL (0.4-5.4); Mean Corpuscular Hemoglobin 30.4 pg (28.0-32.0); Mean Corpuscular Hgb Conc. 32.4 g/dL (32.0-36.0); Mean Corpuscular Volume 93.7 fL (80.0-100.0); Monocytes # (auto) 0.2 10 ^3/uL (0-1.3); Monocytes % (auto) 5.2 % (0.0-12.0); Neutrophils # (auto) 3.2 10 ^3/uL (1.6-8.6); Neutrophils % (auto) 85.3 % (37.0-80.0); Nucleated Red Blood Cells % 0.1 %; Platelet Count (auto) 126 10^3/uL (140-450); Red Blood Cells 3.67 10^6/uL (4.5-5.90); Red Cell Distribution Width 16.1 % (11.8-14.3); White Blood Cell 3.8 10^3/uL (4.4-10.8)
[2020-01-10 19:02] LABS: INR 1.17 (0.9-1.15); Partial Thromboplastin Time 36.3 sec (23.0-31.2)
[2020-01-10] MEDS ORDERED: FUROSEMIDE 40 MG/4 ML VIAL IV ONE (21:30)
[2020-01-10] MEDS ORDERED: MORPHINE SULF INJ 2 MG/ML SYRINGE 1ML IV PRN (21:30)
[2020-01-10] MEDS ORDERED: NITROGLYCERIN 0.4 MG SL TAB SL PRN (21:30)
[2020-01-10] MEDS ORDERED: DEXTROSE (50%) 50ML SYRG IV PRN (21:30)
[2020-01-10] MEDS: InsuLIN REG 1unit/0.01ml Soln (100units/ml) SC SCH (22:00)
[2020-01-10] MEDS ORDERED: ALPRAZolam 0.5 MG TAB PO SCH (22:00)
[2020-01-10] MEDS: ACCU-CHEK COMFORT CURVE STRIP VI SCH (22:00)
[2020-01-10] MEDS ORDERED: INSULIN LANTUS (GLARGINE) 1 /0.01ml (100units/ml) SC SCH (22:00)
[2020-01-10] MEDS: PIPERACILLIN-TAZOB 3.375GM 100 ML IV SCH (22:27)
[2020-01-10] MEDS: APIXABAN 2.5 MG TAB PO SCH (22:28)
[2020-01-10] MEDS: AMIODARONE HCL 200 MG TAB PO SCH (22:28)
[2020-01-10] MEDS: METOPROLOL SUCCINATE XL 50 MG TAB PO SCH (22:28)
[2020-01-10 23:15] VITALS: BP_SYST 101; BP_SYST 111; BP_DIAS 43; BP_DIAS 53
[2020-01-11] VITALS: BP 102/53
[2020-01-11 05:00] VITALS: BP 100/72
[2020-01-11] MEDS: PANTOPRAZOLE 40 MG TAB PO SCH (06:28)
[2020-01-11] MEDS: PIPERACILLIN-TAZOB 3.375GM 100 ML IV SCH ×3 (06:28→22:23)
[2020-01-11] MEDS: ACCU-CHEK COMFORT CURVE STRIP VI SCH ×4 (07:00→22:35)
[2020-01-11] MEDS: InsuLIN REG 1unit/0.01ml Soln (100units/ml) SC SCH ×4 (07:00→22:21)
[2020-01-11 09:00] VITALS: BP 118/66
[2020-01-11] MEDS: FAMOTIDINE 20 MG TAB PO SCH (09:23)
[2020-01-11] MEDS: CLOPIDOGREL BISULFATE 75 MG TAB PO SCH (09:23)
[2020-01-11] MEDS: FERROUS SULFATE 325 MG TAB PO SCH (09:23)
[2020-01-11] MEDS: APIXABAN 2.5 MG TAB PO SCH ×2 (09:23→22:24)
[2020-01-11] MEDS: AMIODARONE HCL 200 MG TAB PO SCH ×2 (09:23→22:24)
[2020-01-11] MEDS: METOPROLOL SUCCINATE XL 50 MG TAB PO SCH ×2 (09:24→22:00)
--- NOTE | 2020-01-11 12:11 | NUR ---
Dr. Strauss paged regarding patient is vomiting. Awaiting to call back.
--- NOTE | 2020-01-11 12:19 | NUR ---
Received a call from Dr. Strauss with new order, noted and carried it out.
[2020-01-11] MEDS: METOCLOPRAMIDE HCL 5MG/ml INJ 2ml VIAL IV PRN (12:26)
[2020-01-11 13:00] VITALS: BP 141/89
[2020-01-11] MEDS: HYDROcodone-ACET 10/325MG TAB PO PRN (13:54)
[2020-01-11 17:10] VITALS: BP 98/63
--- NOTE | 2020-01-11 17:15 | NUR ---
WOUND CARE NOTE: IN TO SEE PATIENT AT THIS TIME PER WOUND CARE CONSULT REQUEST. PATIENT NOTED TO HAVE WOUNDS UPON ADMIT, WOUND PHOTOS TAKEN, WOUND CONSULT ORDERED AT THAT TIME BY BEDSIDE NURSE. PATIENT ADMITTED TO [facility] WITH DIAGNOSIS OF VTACH. CURRENT JESSICA SCORE IS 17. PATIENT IS NOTED TO BE ABLE TO ASSIST WITH HIS TURNING, REPOSITIONING. HE IS WHEELCHAIR BOUND AT HOME. PATIENT IS S/P RIGHT AKA D/T DM. PATIENT NOTED TO HAVE VENOUS STASIS ULCER TO THE LEFT LATERAL CALF, AND DFU TO RIGHT # 1 TOE. WOUNDS ARE CHRONIC, HEELING SLOWLY. APPLIED THERAHONEY, OPTIFOAM GENTLE DRESSINGS TO WOUNDS. PATIENT TURNED TO RIGHT SIDE. HE HAS A CHRONIC STAGE 1 TO EARLY DTI OVER RAISED SCARS; AND STAGE 2 TO MEDIAL SACRUM. PER PATIENT, WHEN NOT IN HIS WHEELCHAIR, HE LIVES/SLEEPS IN A RECLINING CHAIR, RARELY RELIEVING PRESSURE TO HIS SACRUM. ZGUARD, OPTIFOAM GENTLE SACRAL DRESSING APPLIED. NO OTHER WOUNDS NOTED AT THIS TIME. ALL WOUND STATS CAN BE FOUND WITHIN WOUND ASSESSMENT, LINKED TO THIS NOTE. RECOMMEND: FREQUENT TURN SCHEDULE Q 2 HOURS, PRN CONDITION PERMITS, WITH PRESSURE REDISTRIBUTION USING PILLOWS/WEDGES, SPECIALTY AIR MATTRESS, BID/PRN APPLICATION WITH ZGUARD, OPTIFOAM GENTLE SACRAL DRESSING, EOD/PRN DRESSING CHANGES TO LEFT CALF, # 1 TOE, SKIN/WOUND CARE PLAN, DIETARY CONSULT, CONTINUED MONITORING BY WOUND CARE TEAM. Addendum: 01/11/20 at 1831 by Ameena Loera RN Amended: Links added.
--- NOTE | 2020-01-11 17:37 | NUR ---
Wound nurse at bedside.
--- NOTE | 2020-01-11 19:38 | NUR ---
Opening Shift Note Received report and assumed care of patient. Patient is awake and alert. No signs or symptoms of distress noted. Instructed patient on plan of care and to call for assistance as needed. Will continue to monitor.
--- NOTE | 2020-01-11 20:22 | NUR ---
Patient's son Patient's son updated on plan of care after password verification. Per patient's son, he would like note to be placed in chart for him to be contacted by doctor or nurse every shift as needed to be updated on plan of care. Will inform AM nurse of patient's son's wish.
[2020-01-11 22:00] VITALS: BP 117/60
[2020-01-11] MEDS: INSULIN LANTUS (GLARGINE) 1 /0.01ml (100units/ml) SC SCH (22:21)
[2020-01-11] MEDS: ALPRAZolam 0.5 MG TAB PO SCH (22:23)
--- NOTE | 2020-01-11 23:15 | NUR ---
Dann Strauss. Informed MD of withholding patient's scheduled medication metoprolol 100mg PO due to patient's blood pressure 90/44, heart rate 70. Patient denies any symptoms. MD also made aware of patient's potassium level and patient's request for stool softener. Received call back and received order for Colace 100mg PO BID. Order read back and verified. Addendum: 01/12/20 at 0224 by SHAYLA FRANCO RN RN Order carried out.
[2020-01-12 05:00] VITALS: BP 103/50
[2020-01-12] MEDS: HYDROcodone-ACET 10/325MG TAB PO PRN ×2 (05:10→21:08)
--- NOTE | 2020-01-12 05:10 | NUR ---
Pain Medication Administration Patient complaining of leg pain 5/10. Will administer pain medication per MD order. Will reassess pain level and will continue to monitor.
--- NOTE | 2020-01-12 06:10 | NUR ---
Pain Level Reassessment Patient's pain level reassessed to be 3/10. Offered patient nonpharmacological interventions. Repositioned patient for comfort. Will continue to monitor.
[2020-01-12] MEDS: PIPERACILLIN-TAZOB 3.375GM 100 ML IV SCH ×3 (06:19→22:50)
[2020-01-12] MEDS: ACCU-CHEK COMFORT CURVE STRIP VI SCH ×4 (06:32→22:51)
[2020-01-12] MEDS: PANTOPRAZOLE 40 MG TAB PO SCH (06:32)
[2020-01-12] MEDS: InsuLIN REG 1unit/0.01ml Soln (100units/ml) SC SCH ×4 (06:33→22:57)
[2020-01-12 09:00] VITALS: BP 113/49
[2020-01-12] MEDS: METOPROLOL SUCCINATE XL 50 MG TAB PO SCH ×2 (09:53→22:00)
[2020-01-12] MEDS: DOCUSATE SOD 100 MG CAP PO SCH ×2 (10:00→22:00)
[2020-01-12] MEDS: AMIODARONE HCL 200 MG TAB PO SCH ×2 (10:01→22:51)
[2020-01-12] MEDS: APIXABAN 2.5 MG TAB PO SCH ×2 (10:01→22:51)
[2020-01-12] MEDS: CLOPIDOGREL BISULFATE 75 MG TAB PO SCH (10:01)
[2020-01-12] MEDS: FERROUS SULFATE 325 MG TAB PO SCH (10:01)
[2020-01-12] MEDS: FAMOTIDINE 20 MG TAB PO SCH (10:01)
--- NOTE | 2020-01-12 10:23 | NUR ---
Nutrition Assessment/Consult Notes Please refer to link for nutrition assessment details. Est energy needs: 4603-9409 kcals (23-25 kcals/kg AdjBW of 91kg) Est protein needs: 73-91 gms/day (0.8-1.0 gm/kg AdjBW of 91 kg) Will monitor and reassess prn Addendum: 01/12/20 at [address] Amended: Links added.
[2020-01-12 13:00] VITALS: BP 116/57
[2020-01-12 16:57] VITALS: BP 112/56
--- NOTE | 2020-01-12 20:10 | NUR ---
Paged Dr. Strauss Paged Dr. Strauss regarding patient's cough and elevated temperature. Received new orders for COVID test, Vancomycin 1gm IV ONCE, Tylenol 650mg q6hr PRN for mild pain or temperature. Orders read back and verified. Will carry out and will continue to monitor.
[2020-01-12] MEDS ORDERED: ACETAMINOPHEN 325 MG TAB PO PRN (20:15)
[2020-01-12] MEDS ORDERED: VANCOMYCIN 1GM/250ML 250 ML IV ONE (21:00)
--- NOTE | 2020-01-12 21:08 | NUR ---
Pain Medication Administration Patient complaining of back pain 09/24. Will administer pain medication per MD order. Will reassess pain level and will continue to monitor.
[2020-01-12 22:00] VITALS: BP 112/56
--- NOTE | 2020-01-12 22:08 | NUR ---
Pain Level Reassessment Patient's pain level reassessed to be 1/10. Offered patient nonpharmacological interventions. Repositioned patient for comfort. Will continue to monitor.
[2020-01-12] MEDS: ALPRAZolam 0.5 MG TAB PO SCH (22:50)
[2020-01-12] MEDS: INSULIN LANTUS (GLARGINE) 1 /0.01ml (100units/ml) SC SCH (22:56)
--- NOTE | 2020-01-12 23:00 | NUR ---
Held Medication Paged Dr. Strauss and informed him regarding patient's blood pressure 97/61 and heart rate 110. Patient has scheduled metoprolol 100mg PO to be administered. Per MD, hold medication. Will continue to monitor.
[2020-01-13] VITALS (7 sets, daily range): BP systolic 100–129; BP diastolic 59–73
--- NOTE | 2020-01-13 02:07 | NUR ---
Critical Lab Results Patient is positive for COVID. Will inform
--- NOTE | 2020-01-13 02:10 | NUR ---
Paged Dr. Strauss Paged Dr. Strauss to inform MD regarding patient's positive test results for COVID. Awaiting call back.
--- NOTE | 2020-01-13 02:15 | NUR ---
Voicemail Left Called patient's son to inform him of patient's new room. Left voicemail due to no answer.
--- NOTE | 2020-01-13 02:45 | NUR ---
SBAR Given and Transfer Report given to TIFFANIE Apodaca. Patient transferred to room 222B without incident. Care endorsed.
--- NOTE | 2020-01-13 02:50 | NUR ---
assumed care of this patient.
[2020-01-13] MEDS: PANTOPRAZOLE 40 MG TAB PO SCH (06:00)
[2020-01-13] MEDS: ACCU-CHEK COMFORT CURVE STRIP VI SCH ×4 (06:00→21:29)
[2020-01-13] MEDS: InsuLIN REG 1unit/0.01ml Soln (100units/ml) SC SCH ×4 (06:00→21:33)
[2020-01-13] MEDS: PIPERACILLIN-TAZOB 3.375GM 100 ML IV SCH ×3 (06:01→21:29)
--- NOTE | 2020-01-13 06:56 | NUR ---
closing note pt is on room air. no c/o pain or discomfort. no respiratory distress noted. endorsed care to day shift RN.
--- NOTE | 2020-01-13 08:52 | NUR ---
Paged Dr Strauss. Patient is Covid positive, awaiting medication orders
[2020-01-13] MEDS: DOCUSATE SOD 100 MG CAP PO SCH ×2 (10:00→22:00)
[2020-01-13] MEDS: FERROUS SULFATE 325 MG TAB PO SCH (10:34)
[2020-01-13] MEDS: AMIODARONE HCL 200 MG TAB PO SCH ×2 (10:34→21:29)
[2020-01-13] MEDS: APIXABAN 2.5 MG TAB PO SCH ×2 (10:35→21:27)
[2020-01-13] MEDS: CLOPIDOGREL BISULFATE 75 MG TAB PO SCH (10:35)
[2020-01-13] MEDS: FAMOTIDINE 20 MG TAB PO SCH (10:35)
[2020-01-13] MEDS: METOPROLOL SUCCINATE XL 50 MG TAB PO SCH ×2 (10:37→21:27)
--- NOTE | 2020-01-13 11:25 | NUR ---
Dr Strauss bedside with patient discussing plan of care. Order received to culture wound of left leg. MD to add further orders.
[2020-01-13] MEDS ORDERED: ERGOCALCIFEROL 50,000 UNIT(1.25MG) CAP PO SCH (12:15)
[2020-01-13] MEDS ORDERED: REMDESIVIR PER PHARMACY IV SCH (12:30)
--- NOTE | 2020-01-13 13:05 | NUR ---
Paged lab for a stat lab draw needed by pharmacy for Remdesivir to be given. Per lab, they will send someone.
[2020-01-13] MEDS: METOCLOPRAMIDE HCL 5MG/ml INJ 2ml VIAL IV PRN (14:01)
--- NOTE | 2020-01-13 14:20 | NUR ---
Spoke to lab again, we still need stat labs for patient. Lab will send someone up
[2020-01-13] MEDS: HYDROcodone-ACET 10/325MG TAB PO PRN (15:20)
[2020-01-13 16:24] LABS: Albumin 2.4 g/dL (3.4-5.0); BUN/Creatinine Ratio 11.9; Potassium 4.2 mmol/L (3.5-5.1)
[2020-01-13 16:28] LABS: Bilirubin, Total 0.7 mg/dL (0.2-1.0); Total Protein 6.8 g/dL (6.4-8.2)
[2020-01-13] MEDS ORDERED: REMDESIVIR 200 MG in NS 210ml LOADING DOSE ADULT IV ONE (17:00)
--- NOTE | 2020-01-13 17:36 | NUR ---
REMDESIVIR PRE REMDESIVIR V/S: 98.1 TEMP 98 HR 18 RR 96% 107/72 B/P 15 MINUTE REMDESIVIR V/S: 98.1 TEMP 96 HR 19 RR 95% 96/53 B/P NO S/S OF DISTRESS NOTED. Addendum: 01/13/20 at 1837 by RENO LUCIA RN RN Slowed the rate of infusion due to hypotension. Will continue to monitor.
--- NOTE | 2020-01-13 18:15 | NUR ---
REMDESIVIR VS 98.1 TEMP 97 HR 19 RR 95% 95/56 WILL CONTINUE SLOWER RATE OF INFUSION AND MONITOR
--- NOTE | 2020-01-13 18:35 | NUR ---
REMDESIVIR VS 98.1 TEMP 98 HR 20 RR 95% 99/60
--- NOTE | 2020-01-13 19:10 | NUR ---
POST REMDESIVIR V/S 102/61 B/P, 98HR, 97.6 TEMP, 95% 19 RR NO S/S OF DISTRESS NOTED
[2020-01-13] MEDS: ALPRAZolam 0.5 MG TAB PO SCH (21:27)
[2020-01-13] MEDS: INSULIN LANTUS (GLARGINE) 1 /0.01ml (100units/ml) SC SCH (21:33)
[2020-01-13] MEDS ORDERED: BUDESONIDE 360 MCG IN SCH (22:00)
[2020-01-13] MEDS ORDERED: BUDESONIDE (INHALATION) 0.5 MG/2 ML NEB NEB SCH (22:00)
[2020-01-13] MEDS: BUDESONIDE (INHALATION) 180 MCG IH IN SCH (23:25)
[2020-01-14 05:00] VITALS: BP 118/72
[2020-01-14] MEDS: PIPERACILLIN-TAZOB 3.375GM 100 ML IV SCH ×3 (06:09→21:14)
[2020-01-14] MEDS: PANTOPRAZOLE 40 MG TAB PO SCH (06:10)
[2020-01-14] MEDS: ACCU-CHEK COMFORT CURVE STRIP VI SCH ×4 (06:10→21:08)
[2020-01-14] MEDS: InsuLIN REG 1unit/0.01ml Soln (100units/ml) SC SCH ×4 (06:10→21:10)
[2020-01-14] MEDS: BUDESONIDE (INHALATION) 180 MCG IH IN SCH ×2 (06:38→22:02)
--- NOTE | 2020-01-14 07:39 | NUR ---
closing note pt is currently in his wheelchair at the bedside. no c/o pain or discomfort. pt is on room air. no respiratory distress noted. endorsed care to day shift RN Stephany.
[2020-01-14 08:00] VITALS: BP 108/73
--- NOTE | 2020-01-14 08:00 | NUR ---
ASSESSMENT NOTE PT IS ALERT TO SELF ONLY, CONFUSED TO TIME, PERSON, SITUATION, HAS RT BKA, ROOM AIR SAT AT 94%, PT MEMORY LAST FOR 10 MINUTES, THEN NEED TO REORIENTED AGAIN, PAIN 0/10, ABLE TO SELF REPOSITION NEEDED, ABLE TO VERBALIS HIS NEEDS, CHECK ON PT AT ALL TIMES, BED ALARM ACTIVATED, NO DISTRESS NOTED, EDUCATED OF HOW TO USE THE CALL LIGHT, BUT I WILL CHECK ON PT AT ALL TIMES, NOÉ NURSE AIDE MADE AWARE ABOUT HIS MEMORY STATUS
[2020-01-14 09:00] VITALS: BP 99/58
--- NOTE | 2020-01-14 09:00 | NUR ---
BM PT HAS LOOSE BM, KEPT DRY AND CLEAN
[2020-01-14] MEDS: DOCUSATE SOD 100 MG CAP PO SCH ×2 (09:37→21:38)
[2020-01-14] MEDS: FERROUS SULFATE 325 MG TAB PO SCH (09:37)
[2020-01-14] MEDS: ZINC SULFATE 220mg CAP or TAB PO SCH (09:37)
[2020-01-14] MEDS: APIXABAN 2.5 MG TAB PO SCH ×2 (09:38→21:13)
[2020-01-14] MEDS: AMIODARONE HCL 200 MG TAB PO SCH ×2 (09:38→21:13)
[2020-01-14] MEDS: FAMOTIDINE 20 MG TAB PO SCH (09:38)
[2020-01-14] MEDS: METOPROLOL SUCCINATE XL 50 MG TAB PO SCH ×2 (09:39→21:13)
[2020-01-14] MEDS: CLOPIDOGREL BISULFATE 75 MG TAB PO SCH (09:39)
[2020-01-14] MEDS: ASCORBIC ACID 1,000 MG TAB PO SCH (09:40)
[2020-01-14] MEDS ORDERED: [UNRECOGNIZED DRUG - OTHER] IV SCH (10:00)
--- NOTE | 2020-01-14 11:50 | NUR ---
BM # 2 PT HAS A SECOND MEDIUM SOFT BM, KEPT DRY AND CLEAN
--- NOTE | 2020-01-14 16:50 | NUR ---
REMEDISIVIR INITIATED IV PRE SET OF VS TAKEN, CONTINUE MONITORING
[2020-01-14] MEDS: REMDESIVIR 100mg in NS 230ml DAILYx4DAYS (NO VENT) IV SCH (16:54)
[2020-01-14 17:00] VITALS: BP 127/70
--- NOTE | 2020-01-14 18:03 | NUR ---
PT TOLERATED REMEDISIVIR WELL, NO DISTRESS NOTED, CONTINUE MONITORING
--- NOTE | 2020-01-14 18:15 | NUR ---
DINNER WAKE UP PT, ENCOURAGE TO EAT DINNER, MADE AWARE THAT HIS CALLED
[2020-01-14] MEDS: INSULIN LANTUS (GLARGINE) 1 /0.01ml (100units/ml) SC SCH (21:11)
[2020-01-14] MEDS: ALPRAZolam 0.5 MG TAB PO SCH (21:12)
[2020-01-14 22:00] VITALS: BP 118/71
[2020-01-15 05:00] VITALS: BP 116/72
[2020-01-15] MEDS: PIPERACILLIN-TAZOB 3.375GM 100 ML IV SCH ×3 (06:17→22:43)
[2020-01-15] MEDS: ACCU-CHEK COMFORT CURVE STRIP VI SCH ×4 (06:17→22:43)
[2020-01-15] MEDS: InsuLIN REG 1unit/0.01ml Soln (100units/ml) SC SCH ×4 (06:18→22:42)
[2020-01-15] MEDS: PANTOPRAZOLE 40 MG TAB PO SCH (06:18)
[2020-01-15] MEDS: BUDESONIDE (INHALATION) 180 MCG IH IN SCH ×2 (06:44→22:28)
--- NOTE | 2020-01-15 06:59 | NUR ---
closing note pt is on room air. no c/o pain or discomfort. no respiratory distress noted. endorsed care to day shift RN.
[2020-01-15 07:10] LABS: Albumin 2.3 g/dL (3.4-5.0); Calcium 8.5 mg/dL (8.5-10.1); Potassium 3.7 mmol/L (3.5-5.1)
[2020-01-15 07:13] LABS: BUN/Creatinine Ratio 12.9; Bilirubin, Total 0.6 mg/dL (0.2-1.0); Total Protein 6.6 g/dL (6.4-8.2)
--- NOTE | 2020-01-15 07:20 | NUR ---
Opening Shift Note Assumed care of patient, awake and alert bed is locked and in lowest position bed rails up x2 , call light is within reach. No S/S of distress/SOB or pain. Instructed on POC and to call for assist PRN, will continue to monitor for changes Q1hr and PRN.
[2020-01-15 09:00] VITALS: BP 110/66
[2020-01-15] MEDS: DOCUSATE SOD 100 MG CAP PO SCH ×2 (10:00→22:00)
[2020-01-15] MEDS: FERROUS SULFATE 325 MG TAB PO SCH (10:48)
[2020-01-15] MEDS: ZINC SULFATE 220mg CAP or TAB PO SCH (10:49)
[2020-01-15] MEDS: AMIODARONE HCL 200 MG TAB PO SCH ×2 (10:50→22:43)
[2020-01-15] MEDS: APIXABAN 2.5 MG TAB PO SCH ×2 (10:51→22:43)
[2020-01-15] MEDS: CLOPIDOGREL BISULFATE 75 MG TAB PO SCH (10:51)
[2020-01-15] MEDS: FAMOTIDINE 20 MG TAB PO SCH (10:51)
[2020-01-15] MEDS: METOPROLOL SUCCINATE XL 50 MG TAB PO SCH ×2 (10:52→22:44)
[2020-01-15] MEDS: ASCORBIC ACID 1,000 MG TAB PO SCH (10:52)
--- NOTE | 2020-01-15 11:58 | NUR ---
Nutrition Followup Notes Wt: 118.7 kg Pt is positive for COVID in isolation confused per records. pt is currently on CCHO 60 gm 2 gm na diet with inadequate PO of < 50% x 4 per RN doc Est energy needs: 5891-9547 kcals (23-25 kcals/kg AdjBW of 91kg), Est protein needs: 73-91 gms/day (0.8-1.0 gm/kg AdjBW of 91 kg). Will monitor and reassess prn LABS: GLU 116 H CREAT 1.32 H ALB 2.3 L GI: Pt had 2 BMs today per RN doc. BS: 16 mod risk. Refer to wound assessment report for further details. PES: 1) Obesity aeb BMI of 34.4 kg/m2 r/t energy intake in excess of eergy needs 2) Altered nutrition related lab values aeb hyperglycemia, elev RFTs, hypoalbuminemia r/t current/chronic medical condition Comments: Will continue to monitor PO status, skin status, pertinent labs and weight trends. Will f/u in 3-5 days 1) Refer to CDE on DC. 2) consider Glucerna 1 carton bid as PO is low. 3) Continue current plan of care.
[2020-01-15 13:00] VITALS: BP 105/66
[2020-01-15 17:00] VITALS: BP 101/54
[2020-01-15] MEDS: REMDESIVIR 100mg in NS 230ml DAILYx4DAYS (NO VENT) IV SCH (17:12)
[2020-01-15 22:00] VITALS: BP 99/86
[2020-01-15] MEDS: INSULIN LANTUS (GLARGINE) 1 /0.01ml (100units/ml) SC SCH (22:42)
[2020-01-15] MEDS: ALPRAZolam 0.5 MG TAB PO SCH (22:44)
[2020-01-16 03:20] VITALS: BP 130/80
[2020-01-16 05:00] VITALS: BP 101/64
[2020-01-16] MEDS: PIPERACILLIN-TAZOB 3.375GM 100 ML IV SCH ×2 (06:06→14:10)
[2020-01-16] MEDS: PANTOPRAZOLE 40 MG TAB PO SCH (06:06)
[2020-01-16] MEDS: ACCU-CHEK COMFORT CURVE STRIP VI SCH ×4 (06:06→21:59)
[2020-01-16] MEDS: InsuLIN REG 1unit/0.01ml Soln (100units/ml) SC SCH ×4 (06:07→22:00)
--- NOTE | 2020-01-16 07:01 | NUR ---
closing note pt is resting in semi fowlers with HOB at 30 degrees. no c/o pain or discomfort. pt on room air. endorsed care to day shift RN.
--- NOTE | 2020-01-16 07:35 | NUR ---
Opening Shift Note Assumed care of patient, awake and alert bed is locked and in lowest position bed rails up x2 . No S/S of distress/SOB or pain. Instructed on POC and to call for assist PRN, will continue to monitor for changes Q1hr and PRN.
[2020-01-16] MEDS: BUDESONIDE (INHALATION) 180 MCG IH IN SCH ×2 (07:57→22:27)
[2020-01-16] MEDS: HYDROcodone-ACET 10/325MG TAB PO PRN (08:10)
[2020-01-16 09:32] VITALS: BP 93/59
[2020-01-16] MEDS: METOPROLOL SUCCINATE XL 50 MG TAB PO SCH ×2 (10:00→22:15)
[2020-01-16] MEDS: DOCUSATE SOD 100 MG CAP PO SCH ×2 (10:00→22:00)
[2020-01-16] MEDS: ZINC SULFATE 220mg CAP or TAB PO SCH (11:07)
[2020-01-16] MEDS: FERROUS SULFATE 325 MG TAB PO SCH (11:07)
[2020-01-16] MEDS: CLOPIDOGREL BISULFATE 75 MG TAB PO SCH (11:09)
[2020-01-16] MEDS: FAMOTIDINE 20 MG TAB PO SCH (11:09)
[2020-01-16] MEDS: AMIODARONE HCL 200 MG TAB PO SCH ×2 (11:09→22:01)
[2020-01-16] MEDS: APIXABAN 2.5 MG TAB PO SCH ×2 (11:09→22:00)
[2020-01-16] MEDS: ASCORBIC ACID 1,000 MG TAB PO SCH (11:15)
[2020-01-16 13:03] VITALS: BP 112/68
[2020-01-16 15:28] LABS: Basophils # (auto) 0 10 ^3/uL (0-0.2); Basophils % (auto) 0.3 % (0.0-2.0); Eosinophils # (auto) 0.1 10 ^3/uL (0-0.8); Eosinophils % (auto) 1.8 % (0.0-7.0); Hematocrit 31.3 % (41.0-53.0); Hemoglobin 10.5 g/dL (13.5-17.5); Lymphocytes # (auto) 0.5 10 ^3/uL (0.4-5.4); Mean Corpuscular Hemoglobin 31.1 pg (28.0-32.0); Mean Corpuscular Hgb Conc. 33.5 g/dL (32.0-36.0); Mean Corpuscular Volume 92.8 fL (80.0-100.0); Monocytes # (auto) 0.5 10 ^3/uL (0-1.3); Monocytes % (auto) 9.7 % (0.0-12.0); Neutrophils % (auto) 79.2 % (37.0-80.0); Platelet Count (auto) 223 10^3/uL (140-450); Red Blood Cells 3.37 10^6/uL (4.5-5.90); Red Cell Distribution Width 15.7 % (11.8-14.3)
[2020-01-16 15:46] LABS: BUN/Creatinine Ratio 10.7; Calcium 7.8 mg/dL (8.5-10.1); Potassium 3.9 mmol/L (3.5-5.1)
[2020-01-16 16:43] VITALS: BP 98/64
[2020-01-16] MEDS: REMDESIVIR 100mg in NS 230ml DAILYx4DAYS (NO VENT) IV SCH (17:39)
[2020-01-16 22:00] VITALS: BP 109/73
[2020-01-16] MEDS: INSULIN LANTUS (GLARGINE) 1 /0.01ml (100units/ml) SC SCH (22:00)
[2020-01-16] MEDS: ALPRAZolam 0.5 MG TAB PO SCH (22:01)
[2020-01-16] MEDS: LINEZOLID 600MG/300ML 300 ML IV SCH (22:02)
[2020-01-17] MEDS: HYDROcodone-ACET 10/325MG TAB PO PRN (04:25)
[2020-01-17 05:00] VITALS: BP 138/73
[2020-01-17] MEDS: InsuLIN REG 1unit/0.01ml Soln (100units/ml) SC SCH ×3 (06:50→18:00)
[2020-01-17] MEDS: PANTOPRAZOLE 40 MG TAB PO SCH (06:50)
[2020-01-17] MEDS: ACCU-CHEK COMFORT CURVE STRIP VI SCH ×3 (06:51→17:30)
[2020-01-17 06:56] LABS: Basophils # (auto) 0 10 ^3/uL (0-0.2); Basophils % (auto) 0.2 % (0.0-2.0); Eosinophils # (auto) 0.1 10 ^3/uL (0-0.8); Eosinophils % (auto) 1.8 % (0.0-7.0); Hematocrit 31.9 % (41.0-53.0); Hemoglobin 10.6 g/dL (13.5-17.5); Lymphocytes # (auto) 0.7 10 ^3/uL (0.4-5.4); Mean Corpuscular Hemoglobin 30.6 pg (28.0-32.0); Mean Corpuscular Hgb Conc. 33.3 g/dL (32.0-36.0); Mean Corpuscular Volume 91.9 fL (80.0-100.0); Monocytes # (auto) 0.5 10 ^3/uL (0-1.3); Monocytes % (auto) 9.7 % (0.0-12.0); Neutrophils # (auto) 4.1 10 ^3/uL (1.6-8.6); Neutrophils % (auto) 76.3 % (37.0-80.0); Nucleated Red Blood Cells % 0.1 %; Platelet Count (auto) 248 10^3/uL (140-450); Red Blood Cells 3.47 10^6/uL (4.5-5.90); Red Cell Distribution Width 15.2 % (11.8-14.3); White Blood Cell 5.4 10^3/uL (4.4-10.8)
--- NOTE | 2020-01-17 06:56 | NUR ---
closing note pt on room air. no c/o pain or discomfort. no respiratory distress. endorsed care to day shift RN.
--- NOTE | 2020-01-17 07:15 | NUR ---
Opening Shift Note Assumed care of patient, awake and alert. No S/S of distress/SOB or pain. Instructed on POC and to call for assist PRN, will continue to monitor for changes Q1hr and PRN. Fall precautions in place per safety protocol.
[2020-01-17] MEDS: METOCLOPRAMIDE HCL 5MG/ml INJ 2ml VIAL IV PRN (08:29)
[2020-01-17 09:00] VITALS: BP 98/67
[2020-01-17] MEDS: DOCUSATE SOD 100 MG CAP PO SCH (10:00)
[2020-01-17] MEDS: FERROUS SULFATE 325 MG TAB PO SCH (11:11)
[2020-01-17] MEDS: LINEZOLID 600MG/300ML 300 ML IV SCH (11:11)
[2020-01-17] MEDS: ZINC SULFATE 220mg CAP or TAB PO SCH (11:12)
[2020-01-17] MEDS: AMIODARONE HCL 200 MG TAB PO SCH (11:12)
[2020-01-17] MEDS: FAMOTIDINE 20 MG TAB PO SCH (11:12)
[2020-01-17] MEDS: METOPROLOL SUCCINATE XL 50 MG TAB PO SCH (11:13)
[2020-01-17] MEDS: ASCORBIC ACID 1,000 MG TAB PO SCH (11:13)
[2020-01-17] MEDS: CLOPIDOGREL BISULFATE 75 MG TAB PO SCH (11:13)
[2020-01-17] MEDS: APIXABAN 2.5 MG TAB PO SCH (11:14)
[2020-01-17] MEDS ORDERED: POTASSIUM CHL 20 Meq TABLET PO ONE (12:15)
[2020-01-17] MEDS ORDERED: FUROSEMIDE 20 MG/2 ML VIAL IV ONE (12:15)
[2020-01-17 13:00] VITALS: BP 116/69
--- NOTE | 2020-01-17 14:00 | NUR ---
Hospitalist Spoke to MD Strauss regarding patients discharge, including patient stating "can't I stay another night, I don't feel well still." Per MD Strauss, cont with discharge after last dose of remdesivir. Will carry out new orders and cont to monitor patient.
[2020-01-17] MEDS: REMDESIVIR 100mg in NS 230ml DAILYx4DAYS (NO VENT) IV SCH (18:00)
--- NOTE | 2020-01-17 18:30 | NUR ---
Remdesivir PRE INFUSION BP:1010/61 HR: 66 15 MIN POST INFUSION BP:102/66 HR:98
--- NOTE | 2020-01-17 19:30 | NUR ---
Post Remdesivir Vital Signs BP: 127/66 Hr: 103 O2 saturation 96% Temp: 98.2 Respirations: 20
--- NOTE | 2020-01-17 21:00 | NUR ---
discharge pt taken down to main lobby exit and placed in Sons vehicle.
== END 2020-01-17 21:00 | disposition home or self-care (01) | DRG 177 ==
LOC: ER 14:49 → TELE 21:26 → TELE-CENTR 23:24
PROVIDERS: ADMIT Internal Medicine Cardiovascular Disease; ATTEND Internal Medicine Cardiovascular Disease
PROC: XW033E5 Introduction of Remdesivir Anti-infective into Peripheral Vein, Percutaneous Approach, New Technology Group 5 (ICD-10-PCS; principal; 2020-01-15)
DX: U07.1 COVID-19 (principal); I21.4 Non-ST elevation (NSTEMI) myocardial infarction; J12.89 Other viral pneumonia; I50.23 Acute on chronic systolic (congestive) heart failure; N17.9 Acute kidney failure, unspecified; L97.909 Non-pressure chronic ulcer of unspecified part of unspecified lower leg with unspecified severity; I13.0 Hypertensive heart and chronic kidney disease with heart failure and stage 1 through stage 4 chronic kidney disease, or unspecified chronic kidney disease; D64.9 Anemia, unspecified; I25.5 Ischemic cardiomyopathy; K21.9 Gastro-esophageal reflux disease without esophagitis; E11.51 Type 2 diabetes mellitus with diabetic peripheral angiopathy without gangrene; E87.5 Hyperkalemia; E78.5 Hyperlipidemia, unspecified; F41.9 Anxiety disorder, unspecified; I25.10 Atherosclerotic heart disease of native coronary artery without angina pectoris; L89.152 Pressure ulcer of sacral region, stage 2; E11.40 Type 2 diabetes mellitus with diabetic neuropathy, unspecified; I87.2 Venous insufficiency (chronic) (peripheral); E11.21 Type 2 diabetes mellitus with diabetic nephropathy; N18.9 Chronic kidney disease, unspecified; E11.22 Type 2 diabetes mellitus with diabetic chronic kidney disease; D72.819 Decreased white blood cell count, unspecified; I25.2 Old myocardial infarction; Z79.4 Long term (current) use of insulin; Z82.3 Family history of stroke; Z82.49 Family history of ischemic heart disease and other diseases of the circulatory system; Z83.3 Family history of diabetes mellitus; Z89.611 Acquired absence of right leg above knee; Z95.0 Presence of cardiac pacemaker; Z95.1 Presence of aortocoronary bypass graft
CPT/HCPCS: 36415; 71045; 80048; 80053; 80162; 82962; 83735; 83880; 84443; 84484; 85025; 85610; 85730; 86141; 87077; 87081; 87186; 87205; 94640; G0378; J1815; J2543

== ENCOUNTER → 2020-04-25 | Outpatient (CLI) | payer MEDICARE ==
[~2020-04-25] MED LIST changes: -DIGO0.1238 PO; +DIGO1TAB48 PO; +ONDANSETRON HCL 4 MG/2 ML VIAL IV ONE; +ONDANSETRON HCL 4 MG/2 ML VIAL ONE; +SODIUM CHLORIDE 0.9% 500 ML IV ONE; +methylPREDNISolone SOD SUCC 40 MG/ML VL IV ONE; +methylPREDNISolone SOD SUCC 40 MG/ML VL ONE
[2020-04-25 13:10] VITALS: BP 100/43
[2020-04-25 15:38] VITALS: BP 97/58
== END | disposition home or self-care (01) ==
LOC: CHF HDHVI 13:24
PROVIDERS: ATTEND Internal Medicine Cardiovascular Disease
DX: E86.0 Dehydration (principal); N39.0 Urinary tract infection, site not specified; R11.0 Nausea; E03.9 Hypothyroidism, unspecified; R61 Generalized hyperhidrosis; I13.0 Hypertensive heart and chronic kidney disease with heart failure and stage 1 through stage 4 chronic kidney disease, or unspecified chronic kidney disease; E11.22 Type 2 diabetes mellitus with diabetic chronic kidney disease; I50.23 Acute on chronic systolic (congestive) heart failure; N18.4 Chronic kidney disease, stage 4 (severe); I25.10 Atherosclerotic heart disease of native coronary artery without angina pectoris; I25.2 Old myocardial infarction; E11.21 Type 2 diabetes mellitus with diabetic nephropathy; E11.40 Type 2 diabetes mellitus with diabetic neuropathy, unspecified; E11.51 Type 2 diabetes mellitus with diabetic peripheral angiopathy without gangrene; K21.9 Gastro-esophageal reflux disease without esophagitis; E78.5 Hyperlipidemia, unspecified; E66.01 Morbid (severe) obesity due to excess calories; F41.9 Anxiety disorder, unspecified; Z68.36 Body mass index [BMI] 36.0-36.9, adult; Z95.810 Presence of automatic (implantable) cardiac defibrillator
CPT/HCPCS: 96361; 96374; 96375; G0463; J2405; J2920; J7040

== ENCOUNTER → 2020-05-06 | Outpatient (CLI) | payer MEDICARE ==
[~2020-05-06] MED LIST changes: +CYANOCOBALAMIN (B-12) 1000 MCG/1 ML VIAL IM ONE; +CYANOCOBALAMIN (B-12) 1000 MCG/1 ML VIAL ONE; +MULTIPLE VIT 10 ML IV ONE; +MVI in SODIUM CHLORIDE 0.9% 500 ML IVB ONE; -SODIUM CHLORIDE 0.9% 500 ML IV ONE; -methylPREDNISolone SOD SUCC 40 MG/ML VL IV ONE; -methylPREDNISolone SOD SUCC 40 MG/ML VL ONE
[2020-05-06 12:34] LABS: Basophils # (auto) 0 10 ^3/uL (0-0.2); Basophils % (auto) 0.2 % (0.0-2.0); Eosinophils # (auto) 0 10 ^3/uL (0-0.8); Eosinophils % (auto) 0.5 % (0.0-7.0); Hematocrit 35.7 % (41.0-53.0); Hemoglobin 11.6 g/dL (13.5-17.5); Lymphocytes # (auto) 0.6 10 ^3/uL (0.4-5.4); Lymphocytes % (auto) 6.6 % (10.0-50.0); Mean Corpuscular Hemoglobin 30.8 pg (28.0-32.0); Mean Corpuscular Hgb Conc. 32.5 g/dL (32.0-36.0); Mean Corpuscular Volume 94.9 fL (80.0-100.0); Monocytes # (auto) 0.8 10 ^3/uL (0-1.3); Neutrophils # (auto) 7.1 10 ^3/uL (1.6-8.6); Neutrophils % (auto) 83.7 % (37.0-80.0); Platelet Count (auto) 186 10^3/uL (140-450); Red Blood Cells 3.76 10^6/uL (4.5-5.90); Red Cell Distribution Width 19.5 % (11.8-14.3); White Blood Cell 8.5 10^3/uL (4.4-10.8)
[2020-05-06 12:35] LABS: Albumin 3.1 g/dL (3.4-5.0); BUN/Creatinine Ratio 15.8; Magnesium 2.4 mg/dL (1.6-2.6); Potassium 4.9 mmol/L (3.5-5.1)
[2020-05-06 12:37] LABS: Bilirubin, Total 1.2 mg/dL (0.2-1.0); Total Protein 7.4 g/dL (6.4-8.2)
[2020-05-06 15:50] VITALS: BP 126/53
== END | disposition home or self-care (01) ==
LOC: CHF HDHVI 11:38
PROVIDERS: ATTEND Internal Medicine Cardiovascular Disease
DX: I13.0 Hypertensive heart and chronic kidney disease with heart failure and stage 1 through stage 4 chronic kidney disease, or unspecified chronic kidney disease (principal); E11.22 Type 2 diabetes mellitus with diabetic chronic kidney disease; I50.23 Acute on chronic systolic (congestive) heart failure; N18.4 Chronic kidney disease, stage 4 (severe); F41.9 Anxiety disorder, unspecified; I25.10 Atherosclerotic heart disease of native coronary artery without angina pectoris; K21.9 Gastro-esophageal reflux disease without esophagitis; E78.5 Hyperlipidemia, unspecified; E03.9 Hypothyroidism, unspecified; I25.2 Old myocardial infarction; E11.40 Type 2 diabetes mellitus with diabetic neuropathy, unspecified; E11.51 Type 2 diabetes mellitus with diabetic peripheral angiopathy without gangrene; Z95.810 Presence of automatic (implantable) cardiac defibrillator
CPT/HCPCS: 36415; 80053; 82306; 82962; 83036; 83735; 85025; 85652; 96365; 96366; 96372; 96375; G0463; J2405; J3420; J7040; 96374